=== PATIENT | male | born 1960 | race Caucasian/White ===

== ENCOUNTER → 2020-05-29 09:05 | Outpatient (BNVA) | payer MEDICARE, MEDICAID, SELFPAY | PROVIDERS: PCP Internal Medicine; Visit Provider Orthopaedic Surgery | DX: M65.332 Trigger finger, left middle finger (principal) | CPT/HCPCS: 99202 ==

== ENCOUNTER → 2020-10-03 10:23 | Outpatient (BNVA) | payer MEDICARE, MEDICAID, SELFPAY | PROVIDERS: PCP Internal Medicine; Visit Provider Urology | DX: N48.1 Balanitis (principal); E11.69 Type 2 diabetes mellitus with other specified complication; N52.1 Erectile dysfunction due to diseases classified elsewhere | CPT/HCPCS: 99212 ==

== ENCOUNTER → 2021-04-24 11:00 | Outpatient (BNVA) | payer MEDICARE, MEDICAID, SELFPAY | PROVIDERS: PCP Internal Medicine; Referring Provider Internal Medicine; Visit Provider Physician Assistant | DX: Z12.11 Encounter for screening for malignant neoplasm of colon (principal) | CPT/HCPCS: 99202 ==

== ENCOUNTER 2022-02-04 07:37 | Day surgery (SDC) | payer MEDICARE, MEDICAID, SELFPAY ==
[2022-01-29 14:35] VITALS: BMI 38.2
--- NOTE | 2022-02-03 13:27 | HO.ANESPROP2 ---
Documented by User: Brooke Lazo NP 02/03/22 13:27 HPI - Anesthesia Eval Consult details Narrative: 62yo M for Colonoscopy PMFSH Active Problems Active Problems: All Active Problems (Updated 01/29/22 @ 11:17 by Deborah Plasencia RN) Trigger finger, left middle finger (Acute) BPH w urinary obs/LUTS (Acute) Balanitis (Acute) Erectile dysfunction associated with type 2 diabetes mellitus (Acute) Encounter for screening colonoscopy (Acute) Past Medical History Medical History (Updated 01/29/22 @ 11:17 by Deborah Plasencia RN) Diabetes Essential hypertension Hernia High cholesterol Hx of migraines Hyperlipidemia Incomplete emptying of bladder Multiple sclerosis TALIA on CPAP Varicocele Weak urinary stream Family History Family History Father No problems noted. Mother Ovarian cancer Cancer of blood vessel Surgical History Surgical History (Updated 01/29/22 @ 11:17 by Deborah Plasencia RN) History of surgery History of umbilical hernia repair Hx of colonoscopy Social History Social History Patient Tobacco Use Status: Former Tobacco user Have you been hit, kicked, punched, or otherwise hurt by someone within the past year? If so, by whom?: No Are you DNR?: No Advance Directives: No Advance Directives Information Provided: Yes Advance Directives on File: No Current occupational status: disabled Current occupation: right handed/disabled Meds Allergies Allergy/AdvReac Type Severity Reaction Status Date / Time No Known Allergies Allergy Verified 01/29/22 11:17 [No Known Allergies*] Home Medications Medication Instructions Recorded Confirmed Last Taken Type alcohol swabs (Alcohol Prep Pads) pad topical TID-QID diabetes 10/03/20 04/24/21 Unknown History mellitus empagliflozin 10 mg tablet 10 mg PO DAILY 10/03/20 01/29/22 Unknown History (Jardiance) insulin aspart U-100 100 unit/mL unit subcut 10/03/20 04/24/21 Unknown History (3 mL) subcutaneous pen (Novolog Flexpen U-100 Insulin aspart) insulin detemir U-100 100 unit/mL 38 unit subcut BEDTIME 10/03/20 01/29/22 Unknown History (3 mL) subcutaneous pen (Levemir FlexTouch U-100 Insulin) metformin 1,000 mg tablet 1,000 mg PO BID 10/03/20 01/29/22 Unknown History pen needle, diabetic 32 gauge x #50 ea 10/03/20 04/24/21 Unknown History (Pentips) simvastatin 40 mg tablet 40 mg PO QPM 10/03/20 01/29/22 Unknown History aspirin 81 mg tablet,delayed 1 tab PO QAM 01/29/22 01/29/22 02/02/22 History release ketotifen fumarate 0.025 % (0.035 1 drp ophthalmic (eye) BID PRN 01/29/22 01/29/22 Unknown History %) eye drops allergies lisinopril 20 mg tablet 1 tab PO QAM 01/29/22 01/29/22 Unknown History Exam Exam Date and Time: February 03, 2022 1327 Height,Weight and Vital Signs: Height 5 ft 4 in Weight 101.151 kg Assessment and Plan Assessment Anesthesia Assessment: Chart Reviewed Documented by User: Carrington Russ MD 02/04/22 09:25 [facility] Past Medical History Medical History (Updated 01/29/22 @ 11:17 by Deborah Plasencia RN) Diabetes Essential hypertension Hernia High cholesterol Hx of migraines Hyperlipidemia Incomplete emptying of bladder Multiple sclerosis TALIA on CPAP Varicocele Weak urinary stream Family History Family History Father No problems noted. Mother Ovarian cancer Cancer of blood vessel Family history of problems with anesthesia: No Surgical History Surgical History (Updated 01/29/22 @ 11:17 by Deborah Plasencia RN) History of surgery History of umbilical hernia repair Hx of colonoscopy History of Problems with Anesthesia: No Social History Social History Patient Tobacco Use Status: Former Tobacco user Have you been hit, kicked, punched, or otherwise hurt by someone within the past year? If so, by whom?: No Are you DNR?: No Advance Directives: No Advance Directives Information Provided: Yes Advance Directives on File: No Current occupational status: disabled Current occupation: right handed/disabled Meds Allergies Allergy/AdvReac Type Severity Reaction Status Date / Time No Known Allergies Allergy Verified 01/29/22 11:17 [No Known Allergies*] Home Medications Medication Instructions Recorded Confirmed Last Taken Type alcohol swabs (Alcohol Prep Pads) pad topical TID-QID diabetes 10/03/20 04/24/21 Unknown History mellitus empagliflozin 10 mg tablet 10 mg PO DAILY 10/03/20 01/29/22 Unknown History (Jardiance) insulin aspart U-100 100 unit/mL unit subcut 10/03/20 04/24/21 Unknown History (3 mL) subcutaneous pen (Novolog Flexpen U-100 Insulin aspart) insulin detemir U-100 100 unit/mL 38 unit subcut BEDTIME 10/03/20 01/29/22 Unknown History (3 mL) subcutaneous pen (Levemir FlexTouch U-100 Insulin) metformin 1,000 mg tablet 1,000 mg PO BID 10/03/20 01/29/22 Unknown History pen needle, diabetic 32 gauge x #50 ea 10/03/20 04/24/21 Unknown History (Pentips) simvastatin 40 mg tablet 40 mg PO QPM 10/03/20 01/29/22 Unknown History aspirin 81 mg tablet,delayed 1 tab PO QAM 01/29/22 01/29/22 02/02/22 History release ketotifen fumarate 0.025 % (0.035 1 drp ophthalmic (eye) BID PRN 01/29/22 01/29/22 Unknown History %) eye drops allergies lisinopril 20 mg tablet 1 tab PO QAM 01/29/22 01/29/22 Unknown History Exam Airway Mallampati Class: III TM Dist: >3cm Neck ROM: Full Heart: rrrr Lungs: clear Assessment and Plan Final Anesthetic Review Family History of Problems with Anesthesia: No History of Problems with Anesthesia: No NPO: Yes ASA Class: II Final Preanesthetic Review: No Changes in Pt Med Stat, Meds/Allgs Chart Reviewed, Consent Obtained/Reviewed and Anes Risks/Benef Reviewed Patient Risk: Intermediate Procedure Risk: Low Anesthetic Plan Anesthetic Plan: MAC: Disposition: Standard PACU
[2022-02-04 08:47] VITALS: BP 117/70; PULSE 84; RESP 18; TEMP 37.1; O2SAT 97; BMI 39.4
[2022-02-04 08:57] LABS: Glucose, Whole Blood 158 mg/dL (60-115)
[2022-02-04] MEDS: Lactated Ringers 1,000 ML 100 ML IVCONT (09:02)
--- NOTE | 2022-02-04 09:14 | MHC.SHP ---
Pre-Procedural Eval Section A Date of Service: 02/04/22 Section B Chief Complaint: screening Relevant Family History (Specify if Yes): No Relevant Social History: None Present Medications: see Short Stay Collaborative assessment Medical History: Significant History (Diabetes Essential hypertension Hernia High cholesterol Hx of migraines Hyperlipidemia Incomplete emptying of bladder Multiple sclerosis TALIA on CPAP Varicocele Weak urinary stream) History of Previous Operations: Relevant previous surgery/procedure and date(s) (History of surgery History of umbilical hernia repair Hx of colonoscopy) Allergies: Allergies Allergy/AdvReac Type Severity Reaction Status Date / Time No Known Allergies Allergy Verified 01/29/22 11:17 [No Known Allergies*] Review of Systems Sugical H&P ROS: Negative: Constitution, Cardiovascular, Respiratory, Neurological, Psychiatric, Hem-Onc, Allergic/Immunologic, Gastrointestinal, Genitourinary, Musculoskeletal, Integumentary, Endocrine and Eyes/Ears/Nose/Throat Exam Surgical H&P Exam: Normal: HEENT, Normal: Heart, Normal: Lungs, Normal: Extremities, Normal: Abdomen, Normal: Skin and Normal: Neurological Plan Diagnosis/Plan: Unchanged I have reviewed the history and physical and performed a pertinent physical examination on my patient. No changes have occurred unless specified. Time Spent With Patient Time: Total time managing care of this patient today ____ minutes.
--- NOTE | 2022-02-04 10:06 | W.PM.OPN ---
Operative Note Operative Note Date of Service: 02/04/22 Narrative: Operative Information Procedure Description: Colonoscopy Indication: screening Anesthesia: MAC COLONOSCOPY Instrument: Olympus variable stiffness pediatric scope 190L Colonoscopy Monitoring: Vital signs and clinical assessment, continuous EKG monitoring, Pulse oximetry, Carbon Dioxide monitoring and blood pressure monitoring were done throughout the procedure. Colon withdrawal time was 27 minutes. Procedure: The patient was placed in the left lateral decubitis position and pre-procedure medications were administered. After a digital rectal examination of the ano-rectum, the video colonoscope was inserted into the rectum and advanced through the colon to the cecum/TI. The colonoscope was slowly withdrawn in a retrograde panoramic fashion and the colon mucosa was carefully examined including a retroflexed view of the rectum. Findings and interventions are described below. Procedure Difficulty: easy Findings: Terminal Ileum-normal Cecum: 6-8 mm sessile polyp right over the appendiceal orifice, this was lifted with saline injection and then removed with cold forceps Ascending Colon: 12-14 mm sessile polyp in proximal area, removed with cold snare with one clip applied for hemostasis. Transverse Colon - 10 mm sessile polyp removed with cold snare Descending Colon:normal Sigmoid Colon: mild diverticulosis, 10 mm sessile polyp removed with cold snare and x 2 clips applied for hemostasis. Rectum: Retroflexion with small internal hemorrhoids, grade I Anorectum - normal Colon preparation: [place] Bowel Preparation Scale Right colon; 2 Transverse colon: 2 Left colon; 2 (0 = Unprepared colon segment with mucosa not seen due to solid stool that cannot be cleared. 1 = Portion of mucosa of the colon segment seen, but other areas of the colon segment not well seen due to staining, residual stool and/or opaque liquid. 2 = Minor amount of residual staining, small fragments of stool and/or opaque liquid, but mucosa of colon segment seen well. 3 = Entire mucosa of colon segment seen well with no residual staining, small fragments of stool or opaque liquid) Impression and Post Procedure Diagnosis: polyps internal hemorrhoids diverticular disease Plan: High fiber diet leaflet Avoid straining at stool, epsom salts and sitz bath, anusol supps or cream Repeat Colonoscopy in 3 years or earlier if clinically indicated Avoid nsaids for 5 days. Above findings were reviewed with the patient and relevant handouts were provided if indicated.
[2022-02-04 10:11] VITALS: BP 142/79; PULSE 68; RESP 24; TEMP 36.4; O2SAT 96
[2022-02-04 10:29] VITALS: BP 121/64; PULSE 67; RESP 18; TEMP 37; O2SAT 95
== END 2022-02-04 11:20 | disposition home or self-care (01) ==
PROVIDERS: PCP Internal Medicine; Visit Provider Internal Medicine Gastroenterology
PROC: 0DJD8ZZ Inspection of Lower Intestinal Tract, Via Natural or Artificial Opening Endoscopic (ICD-10-PCS; CPT 45378; principal; 2022-02-04 09:30)
DX: Z12.11 Encounter for screening for malignant neoplasm of colon (principal); D12.0 Benign neoplasm of cecum; D12.2 Benign neoplasm of ascending colon; D12.3 Benign neoplasm of transverse colon; D12.5 Benign neoplasm of sigmoid colon; K57.30 Diverticulosis of large intestine without perforation or abscess without bleeding; K64.0 First degree hemorrhoids; I10 Essential (primary) hypertension; G47.33 Obstructive sleep apnea (adult) (pediatric); G35 Multiple sclerosis; N52.1 Erectile dysfunction due to diseases classified elsewhere; E78.00 Pure hypercholesterolemia, unspecified; E78.5 Hyperlipidemia, unspecified; E11.9 Type 2 diabetes mellitus without complications; Z79.4 Long term (current) use of insulin; Z79.82 Long term (current) use of aspirin; Z79.899 Other long term (current) drug therapy; Z99.89 Dependence on other enabling machines and devices; Z87.891 Personal history of nicotine dependence
CPT/HCPCS: 45385; 45380; 45381; 82947; 88305

== ENCOUNTER 2022-10-13 10:02 | Outpatient (AMB) | payer MEDICARE, MEDICAID, SELFPAY ==
[2022-10-13 10:13] VITALS: BP 120/68; PULSE 57; O2SAT 96; BMI 39.0
--- NOTE | 2022-10-13 10:13 | A.OFFVIS_ITS ---
Intake Vital Signs 10/13/22 10:13 Height 5 ft 4 in Weight 227 lb BMI 39.0 BP 120/68 Blood Pressure Location Lt brachial Position Sitting Pulse 57 Pulse Source Pulse Oximeter Pulse Oximetry (%) 96 Oxygen Delivery Method Room Air Intake Visit Reasons: Obstructive sleep apnea Intake Note: pt is here as a new patient, he has pain in the right lung, has c-pap in the past but needs a new machine. daytime fatigue, snoring, gasping for air at night. Field Identification Specialist Required: Yes Field Identification Specialist Name: jayesh Allergies No Known Allergies [No Known Allergies*] Allergy (Verified 10/13/22 10:30) Medication List - Last Reconciled 10/13/22 by Brittany Gauthier MD alcohol swabs (Alcohol Prep Pads) pad topical TID-QID aspirin 1 tab PO QAM clotrimazole-betamethasone 1-0.05 % 1 appl topical BID 4 weeks insulin aspart U-100 (Novolog FlexPen U-100 Insulin aspart) units subcut insulin detemir U-100 (Levemir FlexTouch U-100 Insulin) 38 units subcut BEDTIME ketotifen fumarate 0.025%(0.035%) 1 drp ophthalmic (eye) BID PRN lisinopril 1 tab PO QAM metformin 1,000 mg PO BID pen needle, diabetic (Pentips) As directed sildenafil 100 mg PO DAILY PRN 30 days simvastatin 40 mg PO QPM Do you need a note to return to daycare/school/sports/work: No HPI Obstructive sleep apnea HPI Details THIS GENTLEMAN IS 62 YEARS OLD AZERI-SPEAKING, REFERRED FOR MANAGEMENT OF HIS SLEEP APNEA, AND ALSO EVALUATION FOR HIS COMPLAINT OF PAIN IN THE RIGHT LUNG. PATIENT DOES HAVE HISTORY OF SMOKING IN THE PAST BUT LUCKILY HE QUIT BACK IN 2006. HE HAS HISTORY OF OBSTRUCTIVE SLEEP APNEA, DIAGNOSED ABOUT 13 YEARS AGO. I CAN SEE IN THE [facility] THAT HE HAD POLYSOMNOGRAM STUDY BACK IN IT SHOWED SEVERE OBSTRUCTIVE SLEEP APNEA AND RESPONDED WELL TO CPAP OF 16 CM. PATIENT DID NOT USE CPAP, VERY REGULARLY AT THAT TIME AND THEN ANOTHER POLYSOMNOGRAM STUDY WAS DONE IN 2012 AGAIN CONFIRMING THAT HE HAD SEVERE OBSTRUCTIVE SLEEP APNEA. HE HAD CPAP TITRATION AND RESPONDED WELL TO PRESSURE OF 13 CM. SINCE THEN HE HAS BEEN USING CPAP DEVICE AT NIGHT REGULARLY. HE WAS USING THE SAME OLD CPAP MACHINE, WHICH STOPPED WORKING COUPLE YEARS AGO. HE STARTED HAVING SYMPTOMS OF EXCESSIVE SNORING AND FREQUENT AWAKENINGS AT NIGHT ALONG WITH EXCESSIVE DAYTIME SLEEPINESS. SINCE ABOUT A YEAR AGO HE HAS BEEN USING HIS SON'S CPAP MACHINE, AND HAS BEEN SLEEPING RELATIVELY BETTER. IF HE DOES NOT USE THE CPAP MACHINE HE REALLY CANNOT SLEEP WELL AT NIGHT. HE IS LOOKING FOR GETTING HIS OWN CPAP MACHINE AGAIN. ALSO HAS HISTORY OF MILD OBSTRUCTIVE AIRWAY DISORDER, AND AT PRESENT HE USES ONLY ALBUTEROL 2 PUFFS Q 4-6 HOURS P.R.N. NOT REGULARLY. PATIENT COMPLAINS OF OCCASIONAL BOUTS OF COUGH AND WHEEZING, AND HE HAS MILD SHORTNESS OF BREATH ON WALKING. COMPLAINS OF SHARP PAIN OVER THE BACK OF HIS RIGHT CHEST, AND SOMETIMES HE CANNOT TAKE A DEEP BREATH, HE WANTS TO MAKE SURE IT IS NOT DUE TO HIS RIGHT LUNG. HOWEVER HE DOES HAVE CHRONIC BACK ISSUE , AND MAY HAVE THIS PAIN SECONDARY TO DEGENERATIVE ARTHRITIS. HE ALSO HAS PERIPHERAL NEUROPATHY DUE TO DIABETES MELLITUS. HE HAS CHRONIC BACK ACHE PROBLEM AND WALKS SLOWLY, HE USES A CANE FOR STABILITY. HE HAS BEEN OVERWEIGHT ALL ALONG AND IS DIFFICULT FOR HIM TO LOSE WEIGHT [facility]LY [facility] IS REVIEWED. [facility] Medical History (Updated 10/13/22 @ 12:11 by Brittany Gauthier MD) Chest pain Diabetes CLEMENTE (dyspnea on exertion) Essential hypertension Hernia High cholesterol Hx of migraines Hyperlipidemia Incomplete emptying of bladder Multiple sclerosis Obesity (BMI 30-39.9) TALIA (obstructive sleep apnea) TALIA on CPAP Somnolence, daytime Varicocele Weak urinary stream Surgical History (Updated 02/10/22 @ 08:39 by Santa Hussein) History of surgery History of umbilical hernia repair Hx of colonoscopy Family History Father No problems noted. Mother Ovarian cancer Cancer of blood vessel Social History (Updated 10/13/22 @ 10:25 by DANIELA Summers) Patient Tobacco Use Status: Former Tobacco user Current occupational status: disabled Current occupation: right handed/disabled Review of Systems Const All systems reviewed & are unremarkable except as noted in HPI and below Eyes Reports no additional complaints ENT Reports no additional complaints Card Denies chest pain, Denies irregular heart rhythm, Denies leg edema and Reports dyspnea (ONLY MILD DYSPNEA ON EXERTION) Resp Denies cough, Reports dyspnea (ONLY MILD DYSPNEA ON EXERTION) and Denies wheezing GI Reports constipation Reports no additional complaints Musc Reports back pain Skin/Breast Reports system reviewed and no additional complaints, except as documented Neuro Reports no additional complaints Psych Reports no additional complaints Endo Reports no additional complaints Aller/Immun Denies wheezing Physical Exam Vital Signs: Last Vital Signs Pulse 57 10/13/22 10:13 BP 120/68 10/13/22 10:13 Pulse Ox 96 10/13/22 10:13 Oxygen Delivery Method Room Air 10/13/22 10:13 BMI result Body Mass Index 39.0 Const General: comfortable, no acute distress, alert and awake Orientation/consciousness: patient oriented x3 HEENT Head: Yes normal to inspection General nose exam: No nasal polyps present and No nasal discharge present Face and sinus: Yes sinuses nontender Mouth: oropharynx abnormals (OROPHARYNX IS NARROW, MALLAMPATI CLASS 3) Throat: Yes posterior oropharynx normal Eyes General: appearance normal, both eyes and all related structures Neck Neck: Yes normal visual inspection, Yes no lymphadenopathy, Yes trachea midline, Yes no JVD and Yes other (NECK CIRCUMFERENCE 20 IN) Thyroid: Thyroid normal Chest Chest palpation & inspection: normal inspection of the chest, normal palpation of entire chest wall and no tenderness Resp Other: PERCUSSION NOTE IS RESONANT, BREATH SOUNDS ARE SLIGHTLY DISTANT. BUT NO AUDIBLE WHEEZES OR RHONCHI ARE HEARD Cardio Palpation: normal PMI Rate: regular rate Rhythm: regular rhythm Heart sounds: no gallops and no murmurs Peripheral pulses: Peripheral pulses 2+ throughout GI Palpation (GI): Soft to palpation, nontender, No hepatosplenomegaly present and no masses Auscultation: normal bowel sounds Back/Spine/Pelvis Thoracic/Lumbar Spine: thoracic and lumbar spine normal to inspection and thoraco-lumbar ROM limited Skin General skin exam: no rashes or lesions noted Neuro General: patient oriented x3 and no focal motor deficits Cranial nerves: Yes CN's II-XII intact bilaterally Extrem General: Yes normal to inspection, Yes no clubbing, cyanosis or edema and Yes no calf tenderness Psych Appearance: grossly normal and well kempt Speech and movement: Normal speech and movement present Assessment & Plan Assessment & Plan (1) Obesity (BMI 30-39.9): Comment: THIS GENTLEMAN IS GROSSLY OBESE , HAS A ROUND FACE, OBESE NECK ( 20 ) AND A GOOD CANDIDATE FOR SLEEP APNEA NOT IN ANY SHAPE TO LOSE. WEIGHT AT THIS TIME Code(s): E66.9 - Obesity, unspecified (2) TALIA (obstructive sleep apnea): Comment: HAS LONGSTANDING HISTORY OF SLEEP APNEA, AT LEAST SINCE 2008. HAS PREVIOUSLY USED CPAP, HIS MACHINE IS OLD, CURRENTLY USING HIS SON'S CPAP MACHINE. WITHOUT THE USE OF CPAP HE IS VERY SYMPTOMATIC. PLAN IS TO REPEAT A HOME SLEEP STUDY, TO CONFIRM THE DIAGNOSIS AND THEN TO GET A NEW CPAP MACHINE FOR HIM. Code(s): G47.33 - Obstructive sleep apnea (adult) (pediatric) (3) Chest pain: Comment: HE COMPLAINS OF DISCOMFORT IN THE RIGHT LOWER COSTAL AREA, THERE IS NO LOCAL TENDERNESS. NO ADVENTITIOUS SOUNDS IN THE RIGHT CHEST ARE HEARD THE PAIN IS PROBABLY MUSCULAR, OR MAY BE RELATED TO DEGENERATIVE ARTHRITIS OF THE SPINE. I HAVE ORDERED A CHEST X-RAY JUST TO REASSURE HIM. IN THE MEANTIME APPLICATION OF HEAT AND LOCAL MASSAGE URGE SHOULD BE HELPFUL. HE CAN ALSO USE TYLENOL 2 TABLETS Q.6 HOURS P.R.N.. Code(s): R07.9 - Chest pain, unspecified (4) CLEMENTE (dyspnea on exertion): Comment: HAS MILD DYSPNEA ON EXERTION LIKE WALKING FAST. BUT NO COUGH OR. 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 WILL ORDER PULMONARY FUNCTION TEST FOR EVALUATION. Code(s): R06.09 - Other forms of dyspnea Orders: Orders RT home sleep study Today E66.9 - Obesity, unspecified, G47.33 - Obstructive sleep apnea (adult) (pediatric), R40.0 - Somnolence PFT pulmonary function test Today E66.9 - Obesity, unspecified, R06.09 - Other forms of dyspnea XR chest 2V Today R06.09 - Other forms of dyspnea, R07.9 - Chest pain, unspecified Coding Level of Care Code New Pt Level 4 (08033) Diagnoses Obesity (BMI 30-39.9) E66.9 TALIA (obstructive sleep apnea) G47.33 Chest pain R07.9 CLEMENTE (dyspnea on exertion) R06.09
== END 2022-10-13 10:47 | disposition home or self-care (01) ==
PROVIDERS: PCP Internal Medicine; Visit Provider Internal Medicine
DX: E66.9 Obesity, unspecified (principal); G47.33 Obstructive sleep apnea (adult) (pediatric); R07.9 Chest pain, unspecified; R06.09 Other forms of dyspnea
CPT/HCPCS: 99204

== ENCOUNTER → 2022-10-13 10:02 | Outpatient (BNVA) | payer MEDICARE, MEDICAID, SELFPAY | PROVIDERS: PCP Internal Medicine; Visit Provider Internal Medicine | DX: G47.33 Obstructive sleep apnea (adult) (pediatric) (principal); E66.9 Obesity, unspecified; R07.9 Chest pain, unspecified; R06.09 Other forms of dyspnea; Z68.39 Body mass index [BMI] 39.0-39.9, adult | CPT/HCPCS: 99202 ==

== ENCOUNTER 2022-10-14 10:13 | Outpatient (REF) | payer MEDICARE, MEDICAID, SELFPAY ==
--- NOTE | ~2022-10-14 | XR_ITS ---
EXAMINATION: XR CHEST CLINICAL INFORMATION: Dyspnea COMPARISON: None available. TECHNIQUE: 2 views of the chest were obtained. FINDINGS: No dominant airspace consolidations or pleural effusions. There is mild prominence of pulmonary vascularity with partially ill-defined margins. Underlying mild vascular congestion is a consideration. There are mild thoracic spondylitic changes. XR/XR chest 2V IMPRESSION: No focal infiltrates or pleural effusions. Mild prominence of pulmonary vascularity with partially ill-defined margins. Underlying mild vascular congestion is a consideration.
== END 2022-10-14 10:14 | disposition home or self-care (01) ==
LOC: HO.XRAY 10:13
PROVIDERS: Visit Provider Internal Medicine
DX: R06.09 Other forms of dyspnea (principal); R07.9 Chest pain, unspecified
CPT/HCPCS: 71046

== ENCOUNTER 2022-11-06 13:54 | Outpatient (REF) | payer MEDICARE, MEDICAID, SELFPAY ==
--- NOTE | 2022-11-06 14:49 | PFT_ITS ---
INDICATION: Dyspnea. SPIROMETRY: FEV1 to FVC 100% with an FEV1 of 1.88 L, which is 65% predicted and an FVC of 1.88 L, which is 49% predicted. No significant response to bronchodilators noted. Maximum voluntary ventilation 80% predicted. LUNG VOLUMES: Total lung capacity 57% predicted with an expiratory reserve volume of 13% predicted. DIFFUSION CAPACITY: DLCO of 101% predicted. COMPARISONS: None. INTERPRETATION: No obstructive ventilatory defects. No significant response to bronchodilators noted. Normal maximum voluntary ventilation. Lung volumes do demonstrate an obstructive ventilatory defect consistent with moderate restrictive lung disease. The patient also has a significant decrease in the expiratory reserve volume secondary to an elevated BMI. Diffusion capacity is within normal limits. Clinical correlation warranted. MD KENROY Aleman/LEÓN / [id number]
== END 2022-11-06 13:55 | disposition home or self-care (01) ==
LOC: HO.RESP 13:54
PROVIDERS: PCP Internal Medicine; Visit Provider Internal Medicine
DX: R06.09 Other forms of dyspnea (principal); E66.9 Obesity, unspecified
CPT/HCPCS: 94010; 94727; 94729

== ENCOUNTER → 2022-11-06 14:49 | Outpatient (BNV) | payer MEDICARE, MEDICAID, SELFPAY | PROVIDERS: PCP Internal Medicine; Visit Provider Hospitalist | DX: R06.83 Snoring (principal); G47.33 Obstructive sleep apnea (adult) (pediatric) | CPT/HCPCS: 94060; 94727; 94729 ==

== ENCOUNTER → 2022-11-17 14:47 | Outpatient (REF) | payer MEDICARE, MEDICAID, SELFPAY | LOC: HO.SL 14:47 | PROVIDERS: PCP Internal Medicine; Visit Provider Internal Medicine | DX: G47.33 Obstructive sleep apnea (adult) (pediatric) (principal); R40.0 Somnolence; E66.9 Obesity, unspecified | CPT/HCPCS: 95806 ==

== ENCOUNTER → 2022-11-17 15:11 | Outpatient (BNV) | payer MEDICARE, MEDICAID, SELFPAY | PROVIDERS: PCP Internal Medicine; Visit Provider Internal Medicine | DX: G47.33 Obstructive sleep apnea (adult) (pediatric) (principal) | CPT/HCPCS: 95806 ==

== ENCOUNTER 2022-12-17 09:51 | Outpatient (AMB) | payer MEDICARE, SELFPAY ==
[2022-12-17 10:10] VITALS: BP 128/60; PULSE 72; O2SAT 95; BMI 38.6
--- NOTE | 2022-12-17 10:10 | MHC.OFFVIS ---
Intake Vital Signs 12/17/22 10:10 Height 5 ft 4 in Weight 225 lb BMI 38.6 BP 128/60 Blood Pressure Location Lt brachial Position Sitting Pulse 72 Pulse Source Pulse Oximeter Pulse Oximetry (%) 95 Oxygen Delivery Method Room Air Intake Visit Reasons: Obstructive sleep apnea Intake Note: pt is here for follow up of sleep study and pft. Administrator Pesticide Required: Yes Administrator Pesticide Name: [id number] adalbeto Allergies No Known Allergies [No Known Allergies*] Allergy (Verified 12/17/22 10:33) Medication List - Last Reconciled 12/17/22 by Brittany Gauthier MD alcohol swabs (Alcohol Prep Pads) pad topical TID-QID aspirin 1 tab PO QAM clotrimazole-betamethasone 1-0.05 % 1 appl topical BID 4 weeks insulin aspart U-100 (Novolog FlexPen U-100 Insulin aspart) units subcut insulin detemir U-100 (Levemir FlexTouch U-100 Insulin) 38 units subcut BEDTIME ketotifen fumarate 0.025%(0.035%) 1 drp ophthalmic (eye) BID PRN lisinopril 1 tab PO QAM metformin 1,000 mg PO BID pen needle, diabetic (Pentips) As directed sildenafil 100 mg PO DAILY PRN 30 days simvastatin 40 mg PO QPM Do you need a note to return to daycare/school/sports/work: No HPI Obstructive sleep apnea HPI Details 62 years old very pleasant gentleman, Albanian-speaking, comes. For follow-up after his sleep study Breathing nicholson he is okay except for mild shortness of breath if he walks or climbs stairs. Very little cough. Or wheezing He does not have to use the inhaler. His sleep is still poor frequent awakenings with snoring and daytime sleepiness. Weight unchanged.. [facility] Medical History (Updated 12/17/22 @ 10:40 by Brittany Gauthier MD) Nocturnal hypoxemia Somnolence, daytime CLEMENTE (dyspnea on exertion) Chest pain TALIA (obstructive sleep apnea) Obesity (BMI 30-39.9) Hx of migraines TALIA on CPAP Hyperlipidemia Varicocele Weak urinary stream Incomplete emptying of bladder Essential hypertension Hernia Multiple sclerosis High cholesterol Diabetes Surgical History History of umbilical hernia repair Hx of colonoscopy History of surgery Family History Father No problems noted. Mother Ovarian cancer Cancer of blood vessel Social History Patient Tobacco Use Status: Former Tobacco user Current occupational status: disabled Current occupation: right handed/disabled Review of Systems Const All systems reviewed & are unremarkable except as noted in HPI and below Eyes Reports no additional complaints ENT Reports no additional complaints Card Denies chest pain, Denies irregular heart rhythm, Denies leg edema and Reports dyspnea (ONLY MILD DYSPNEA ON EXERTION) Resp Denies cough, Reports dyspnea (ONLY MILD DYSPNEA ON EXERTION) and Denies wheezing GI Reports constipation Reports no additional complaints Musc Reports back pain Skin/Breast Reports system reviewed and no additional complaints, except as documented Neuro Reports no additional complaints Psych Reports no additional complaints Endo Reports no additional complaints Aller/Immun Denies wheezing Physical Exam Vital Signs: Last Vital Signs Pulse 72 12/17/22 10:10 BP 128/60 12/17/22 10:10 Pulse Ox 95 12/17/22 10:10 Oxygen Delivery Method Room Air 12/17/22 10:10 BMI result Body Mass Index 38.6 Const General: comfortable, no acute distress, alert and awake Orientation/consciousness: patient oriented x3 HEENT Head: Yes normal to inspection General nose exam: No nasal polyps present and No nasal discharge present Face and sinus: Yes sinuses nontender Mouth: oropharynx abnormals (OROPHARYNX IS NARROW, MALLAMPATI CLASS 3) Throat: Yes posterior oropharynx normal Eyes General: appearance normal, both eyes and all related structures Neck Neck: Yes normal visual inspection, Yes no lymphadenopathy, Yes trachea midline, Yes no JVD and Yes other (NECK CIRCUMFERENCE 20 IN) Thyroid: Thyroid normal Chest Chest palpation & inspection: normal inspection of the chest, normal palpation of entire chest wall and no tenderness Resp Other: PERCUSSION NOTE IS RESONANT, BREATH SOUNDS ARE SLIGHTLY DISTANT. BUT NO AUDIBLE WHEEZES OR RHONCHI ARE HEARD Cardio Palpation: normal PMI Rate: regular rate Rhythm: regular rhythm Heart sounds: no gallops and no murmurs Peripheral pulses: Peripheral pulses 2+ throughout GI Palpation (GI): Soft to palpation, nontender, No hepatosplenomegaly present and no masses Auscultation: normal bowel sounds Back/Spine/Pelvis Thoracic/Lumbar Spine: thoracic and lumbar spine normal to inspection and thoraco-lumbar ROM limited Skin General skin exam: no rashes or lesions noted Neuro General: patient oriented x3 and no focal motor deficits Cranial nerves: Yes CN's II-XII intact bilaterally Extrem General: Yes normal to inspection, Yes no clubbing, cyanosis or edema and Yes no calf tenderness Psych Appearance: grossly normal and well kempt Speech and movement: Normal speech and movement present Results Reviewed Results Reviewed: PULMONARY FUNCTION TEST ON 11/06/2022 NORMAL. HOME BASED SLEEP STUDY ON 11/17/2022, c/w SEVERE OBSTRUCTIVE SLEEP APNEA WITH TOTAL SLEEP TIME AHI 53.7. PATIENT ALSO HAS NOCTURNAL HYPOXEMIA WITH O2 SAT BELOW 88% FOR 96 MINUTES Assessment & Plan Assessment & Plan (1) Obesity (BMI 30-39.9): Comment: THIS GENTLEMAN IS GROSSLY OBESE , HAS A ROUND FACE, OBESE NECK ( 20 ) AND A GOOD CANDIDATE FOR SLEEP APNEA NOT IN ANY SHAPE TO LOSE WEIGHT AT THIS TIME Code(s): E66.9 - Obesity, unspecified (2) TALIA (obstructive sleep apnea): Comment: HAS LONGSTANDING HISTORY OF SLEEP APNEA, AT LEAST SINCE 2008. HAS PREVIOUSLY USED CPAP, HIS MACHINE IS OLD, CURRENT SLEEP STUDY CONFIRMS THE DIAGNOSIS OF HIS VERY SEVERE OBSTRUCTIVE SLEEP APNEA WITH TOTAL SLEEP TIME AHI 53.7 HE NEEDS A NEW CPAP DEVICE, WITH COMPLIANCE MONITORING CAPABILITY . AFTER DISCUSSING THE RESULTS WITH HIM, I AM ORDERING CPAP MACHINE WITH AUTO PAP SETTING 6-20 CM PRESSURE, . HE WILL NEED FULLFACE MASK THIS WILL BE FOLLOWED BY CLOSE MONITORING FOR COMPLIANCE AND BENEFITS. PATIENT ALREADY KNOWS HOW TO USE THE CPAP MACHINE. Code(s): G47.33 - Obstructive sleep apnea (adult) (pediatric) (3) CLEMENTE (dyspnea on exertion): Comment: HAS MILD DYSPNEA ON EXERTION LIKE WALKING FAST. BUT NO COUGH OR. WHEEZING AT REST IT SEEMS TO BE RELATED TO HIS GROSS OBESITY. PULMONARY FUNCTION TEST DOES NOT SHOW OBSTRUCTIVE OR RESTRICTIVE PULMONARY DISORDER, Code(s): R06.09 - Other forms of dyspnea (4) Nocturnal hypoxemia: Comment: ALONG WITH SEVERE TALIA HE ALSO HAS NOCTURNAL HYPOXEMIA WITH O2 SAT BELOW 88% FOR 96 MINUTES. I THINK WITH THE USE OF CPAP IT WILL RESOLVE. ONCE HE IS USING CPAP REGULARLY WE WILL GET OVERNIGHT OXIMETRY RECORDING TO MAKE SURE THAT HYPOXEMIA IS CORRECTED. Code(s): G47.34 - Idiopathic sleep related nonobstructive alveolar hypoventilation Coding Level of Care Code Est Pt Level 4 (40005) Diagnoses Obesity (BMI 30-39.9) E66.9 TALIA (obstructive sleep apnea) G47.33 CLEMENTE (dyspnea on exertion) R06.09 Nocturnal hypoxemia G47.34
== END 2022-12-17 10:34 | disposition home or self-care (01) ==
PROVIDERS: PCP Internal Medicine; Visit Provider Internal Medicine
DX: E66.9 Obesity, unspecified (principal); G47.33 Obstructive sleep apnea (adult) (pediatric); R06.09 Other forms of dyspnea; G47.34 Idiopathic sleep related nonobstructive alveolar hypoventilation
CPT/HCPCS: 99214

== ENCOUNTER → 2022-12-17 09:51 | Outpatient (BNVA) | payer MEDICARE, MEDICAID, SELFPAY | PROVIDERS: PCP Internal Medicine; Visit Provider Internal Medicine | DX: S61.325A Laceration with foreign body of left ring finger with damage to nail, initial encounter (principal); W27.0XXA Contact with workbench tool, initial encounter | CPT/HCPCS: 99212 ==

== ENCOUNTER 2022-12-29 13:02 | Outpatient (AMB) | payer MEDICARE, MEDICAID, SELFPAY ==
--- NOTE | 2022-12-29 13:07 | MHC.OFFVIS ---
Intake Vital Signs 12/29/22 13:09 Height 5 ft 4 in Weight 226 lb BMI 38.8 BP 165/77 H Blood Pressure Location Rt brachial Position Sitting Pulse 64 Intake Visit Reasons: Anal polyps Intake Note: Patient referred for external hemorroids. Reports hemorrhoid feels smaller and improving. Coal Hauler Required: No Accompanied by: Brother Allergies No Known Allergies [No Known Allergies*] Allergy (Verified 12/17/22 10:33) HPI HPI Comments History of Present Illness Details Patient presents with his brother for evaluation of an anorectal ?polyp ?. His symptoms started approximately 2 weeks ago a swelling in the and rectal area which has markedly decreased in size. Patient had recent colonoscopy which only demonstrated polyps but no other gross pathology. Patient does have regular bowel habits. He denies any anal receptive practices. Chart was reviewed patient evaluated [facility] Medical History Nocturnal hypoxemia Somnolence, daytime CLEMENTE (dyspnea on exertion) Chest pain TALIA (obstructive sleep apnea) Obesity (BMI 30-39.9) Hx of migraines TALIA on CPAP Hyperlipidemia Varicocele Weak urinary stream Incomplete emptying of bladder Essential hypertension Hernia Multiple sclerosis High cholesterol Diabetes Surgical History History of umbilical hernia repair Hx of colonoscopy History of surgery Family History Father No problems noted. Mother Ovarian cancer Cancer of blood vessel Social History Alcohol intake: never Patient Tobacco Use Status: Former Tobacco user Current occupational status: disabled Current occupation: right handed/disabled Physical Exam Vital Signs: Last Vital Signs Pulse 64 12/29/22 13:09 BP 165/77 H 12/29/22 13:09 BMI result Body Mass Index 38.8 GI Other: Abdomen corpulent, soft, benign Anorectal exam demonstrates a resolving small thrombosed external hemorrhoid in The left lateral position.. Assessment & Plan Assessment & Plan (1) Thrombosed external hemorrhoids: Code(s): K64.5 - Perianal venous thrombosis Plan Patient was reassured that this process will resolve completely. He has been instructed to avoid constipation, high-fiber diet, avoid straining and prolonged sitting on a stool and minimize heavy lifting. All questions were answered. He will follow-up p.r.n.. Coding Level of Care Code New Pt Level 4 (67559) Diagnoses Thrombosed external hemorrhoids K64.5
[2022-12-29 13:09] VITALS: BP 165/77; PULSE 64; BMI 38.8
== END 2022-12-29 13:12 | disposition home or self-care (01) ==
PROVIDERS: PCP Internal Medicine; Referring Provider Internal Medicine; Visit Provider Surgery
DX: K64.5 Perianal venous thrombosis (principal)
CPT/HCPCS: 99204

== ENCOUNTER → 2022-12-29 13:02 | Outpatient (BNVA) | payer MEDICARE, MEDICAID, SELFPAY | PROVIDERS: PCP Internal Medicine; Referring Provider Internal Medicine; Visit Provider Surgery | DX: K64.5 Perianal venous thrombosis (principal) | CPT/HCPCS: 99202 ==

== ENCOUNTER 2023-01-20 13:40 | Outpatient (AMB) | payer MEDICARE, MEDICAID, SELFPAY ==
[2023-01-20 13:54] VITALS: BP 104/52; PULSE 72; O2SAT 93; BMI 38.1
--- NOTE | 2023-01-20 13:54 | A.OFFVIS_ITS ---
Intake Vital Signs 01/20/23 13:54 Height 5 ft 4 in Weight 222 lb BMI 38.1 BP 104/52 L Blood Pressure Location Lt brachial Position Sitting Pulse 72 Pulse Source Pulse Oximeter Pulse Oximetry (%) 93 Oxygen Delivery Method Room Air Intake Visit Reasons: Obstructive sleep apnea Intake Note: pt is here for follow up of cpap, and states little issue in the nasal area with mask Manager Financial Reporting Required: Yes Manager Financial Reporting Name: santana Allergies No Known Allergies [No Known Allergies*] Allergy (Verified 01/20/23 14:10) Medication List - Last Reconciled 01/20/23 by Brittany Gauthier MD alcohol swabs (Alcohol Prep Pads) pad topical TID-QID aspirin 1 tab PO QAM clotrimazole-betamethasone 1-0.05 % 1 appl topical BID 4 weeks insulin aspart U-100 (Novolog FlexPen U-100 Insulin aspart) units subcut insulin detemir U-100 (Levemir FlexTouch U-100 Insulin) 38 units subcut BEDTIME ketotifen fumarate 0.025%(0.035%) 1 drp ophthalmic (eye) BID PRN lisinopril 1 tab PO QAM metformin 1,000 mg PO BID pen needle, diabetic (Pentips) As directed sildenafil 100 mg PO DAILY PRN 30 days simvastatin 40 mg PO QPM Do you need a note to return to daycare/school/sports/work: No HPI Obstructive sleep apnea HPI Details THIS 63 YEARS OLD GENTLEMAN, UPPER [place]BI[place]-SPEAKING, IS HERE FOR FOLLOW-UP AFTER STARTING TO USE THE CPAP. HE GOT HIS CPAP ABOUT 3 WEEKS AGO AND SINCE THEN HAS BEEN USING IT EVERY NIGHT. HE HAS FULL FACE MASK, WHICH IS CAUSING SOME PRESSURE-LIKE FEELING ON THE NASAL BRIDGE. ALSO HAS NASAL CONGESTION AT NIGHT. OTHERWISE HE IS USING THE CPAP VERY GOOD AND SLEEPING BETTER. [facility] Medical History (Updated 01/20/23 @ 14:16 by Brittany Gauthier MD) Allergic rhinitis Nocturnal hypoxemia Somnolence, daytime CLEMENTE (dyspnea on exertion) Chest pain TALIA (obstructive sleep apnea) Obesity (BMI 30-39.9) Hx of migraines TALIA on CPAP Hyperlipidemia Varicocele Weak urinary stream Incomplete emptying of bladder Essential hypertension Hernia Multiple sclerosis High cholesterol Diabetes Surgical History History of umbilical hernia repair Hx of colonoscopy History of surgery Family History Father No problems noted. Mother Ovarian cancer Cancer of blood vessel Social History Alcohol intake: never Patient Tobacco Use Status: Former Tobacco user Current occupational status: disabled Current occupation: right handed/disabled Review of Systems Const All systems reviewed & are unremarkable except as noted in HPI and below Eyes Reports no additional complaints ENT Reports no additional complaints and Reports nasal congestion (MILD NASAL CON GESTION IS NOTED) Card Denies chest pain, Denies irregular heart rhythm, Denies leg edema and Reports dyspnea (ONLY MILD DYSPNEA ON EXERTION) Resp Denies cough, Reports dyspnea (ONLY MILD DYSPNEA ON EXERTION) and Denies wheezing GI Reports constipation Reports no additional complaints Musc Reports back pain Skin/Breast Reports system reviewed and no additional complaints, except as documented Neuro Reports no additional complaints Psych Reports no additional complaints Endo Reports no additional complaints Aller/Immun Denies wheezing Physical Exam Vital Signs: Last Vital Signs Pulse 72 01/20/23 13:54 BP 104/52 L 01/20/23 13:54 Pulse Ox 93 01/20/23 13:54 Oxygen Delivery Method Room Air 01/20/23 13:54 BMI result Body Mass Index 38.1 Const General: comfortable, no acute distress, alert and awake Orientation/consciousness: patient oriented x3 HEENT Head: Yes normal to inspection General nose exam: No nasal polyps present, No nasal discharge present and Other nasal findings present (MILD NASAL CONGESTION AND MODERATE HYPERTROPHY OF THE MIDDLE TURBINATES) Face and sinus: Yes sinuses nontender Mouth: oropharynx abnormals (OROPHARYNX IS NARROW, MALLAMPATI CLASS 3) Throat: Yes posterior oropharynx normal Eyes General: appearance normal, both eyes and all related structures Neck Neck: Yes normal visual inspection, Yes no lymphadenopathy, Yes trachea midline, Yes no JVD and Yes other (NECK CIRCUMFERENCE 20 IN) Thyroid: Thyroid normal Chest Chest palpation & inspection: normal inspection of the chest, normal palpation of entire chest wall and no tenderness Resp Other: PERCUSSION NOTE IS RESONANT, BREATH SOUNDS ARE SLIGHTLY DISTANT. BUT NO AUDIBLE WHEEZES OR RHONCHI ARE HEARD Cardio Palpation: normal PMI Rate: regular rate Rhythm: regular rhythm Heart sounds: no gallops and no murmurs Peripheral pulses: Peripheral pulses 2+ throughout GI Palpation (GI): Soft to palpation, nontender, No hepatosplenomegaly present and no masses Auscultation: normal bowel sounds Back/Spine/Pelvis Thoracic/Lumbar Spine: thoracic and lumbar spine normal to inspection and thoraco-lumbar ROM limited Skin General skin exam: no rashes or lesions noted Neuro General: patient oriented x3 and no focal motor deficits Cranial nerves: Yes CN's II-XII intact bilaterally Extrem General: Yes normal to inspection, Yes no clubbing, cyanosis or edema and Yes no calf tenderness Psych Appearance: grossly normal and well kempt Speech and movement: Normal speech and movement present Results Reviewed Results Reviewed: COMPLIANCE REPORT FOR THE LAST THREE WEEKS. HE HAS USED EVERY NIGHT REGULARLY. AVERAGE USE PER NIGHT 4 HOURS AND TWENTY NINE MINUTES. THERE IS MODERATE AMOUNT OF AIR LEAK, AND RESIDUAL AHI STILL 13.4. Assessment & Plan Assessment & Plan (1) Obesity (BMI 30-39.9): Comment: THIS GENTLEMAN IS GROSSLY OBESE , HAS A ROUND FACE, OBESE NECK ( 20 ) AND A GOOD CANDIDATE FOR SLEEP APNEA NOT IN ANY SHAPE TO LOSE WEIGHT AT THIS TIME Code(s): E66.9 - Obesity, unspecified Plan: AGAIN TALKED TO HIM ABOUT THE DIET AND IMPORTANCE OF EXERCISE. HE DOES NOT SEEM TO BE MOTIVATED TO DO MUCH EXERCISE (2) TALIA (obstructive sleep apnea): Comment: HAS LONGSTANDING HISTORY OF SLEEP APNEA, AT LEAST SINCE 2008. HAS PREVIOUSLY USED CPAP, HIS MACHINE IS OLD, CURRENT SLEEP STUDY CONFIRMS THE DIAGNOSIS OF HIS VERY SEVERE OBSTRUCTIVE SLEEP APNEA WITH TOTAL SLEEP TIME AHI 53.7 HE NEEDS A NEW CPAP DEVICE, WITH COMPLIANCE MONITORING CAPABILITY . AFTER DISCUSSING THE RESULTS WITH HIM, I AM ORDERING CPAP MACHINE WITH AUTO PAP SETTING 6-20 CM PRESSURE, . HE WILL NEED FULLFACE MASK THIS WILL BE FOLLOWED BY CLOSE MONITORING FOR COMPLIANCE AND BENEFITS. PATIENT ALREADY KNOWS HOW TO USE THE CPAP MACHINE. Code(s): G47.33 - Obstructive sleep apnea (adult) (pediatric) Plan: HE IS DOING WELL WITH THE NEW CPAP DEVICE. NEEDS DECONGESTANT SPRAY IN THE NOSTRILS AT NIGHTTIME. ENCOURAGED TO USE AT LEAST FOR FIVE. (3) Nocturnal hypoxemia: Comment: ALONG WITH SEVERE TALIA HE ALSO HAS NOCTURNAL HYPOXEMIA WITH O2 SAT BELOW 88% FOR 96 MINUTES. I THINK WITH THE USE OF CPAP IT WILL RESOLVE. Code(s): G47.34 - Idiopathic sleep related nonobstructive alveolar hypoventilation Plan: NOW THAT HE IS USING CPAP REGULARLY I WILL ORDER AN OVERNIGHT OXIMETRY RECORDING, TO MAKE SURE THAT HYPOXEMIA HAS RESOLVED. (4) Allergic rhinitis: Code(s): J30.9 - Allergic rhinitis, unspecified Plan: HE GETS SOME NASAL CONGESTION ESPECIALLY AT NIGHT. ATROVENT NASAL SPRAY TWO SQUIRTS IN EACH NOSTRIL BEFORE PUTTING ON THE CPAP, ORDERED . Medications: New ipratropium bromide administer into each nostril 2 sprays intranasal BID 30 mL 2RF NASAL CONGESTION 30 days Coding Level of Care Code Est Pt Level 3 (67385) Diagnoses Obesity (BMI 30-39.9) E66.9 TALIA (obstructive sleep apnea) G47.33 Nocturnal hypoxemia G47.34 Allergic rhinitis J30.9
== END 2023-01-20 14:12 | disposition home or self-care (01) ==
PROVIDERS: PCP Internal Medicine; Visit Provider Internal Medicine
DX: E66.9 Obesity, unspecified (principal); G47.33 Obstructive sleep apnea (adult) (pediatric); G47.34 Idiopathic sleep related nonobstructive alveolar hypoventilation; J30.9 Allergic rhinitis, unspecified
CPT/HCPCS: 99213

== ENCOUNTER → 2023-01-20 13:40 | Outpatient (BNVA) | payer MEDICARE, MEDICAID, SELFPAY | PROVIDERS: PCP Internal Medicine; Visit Provider Internal Medicine | DX: G47.33 Obstructive sleep apnea (adult) (pediatric) (principal); G47.34 Idiopathic sleep related nonobstructive alveolar hypoventilation; J30.9 Allergic rhinitis, unspecified; E66.9 Obesity, unspecified; Z68.38 Body mass index [BMI] 38.0-38.9, adult | CPT/HCPCS: 99212 ==

== ENCOUNTER 2023-03-24 13:54 | Outpatient (AMB) | payer MEDICARE, MEDICAID, SELFPAY ==
[2023-03-24 14:08] VITALS: BP 110/62; PULSE 67; O2SAT 95; BMI 39.0
--- NOTE | 2023-03-24 14:08 | MHC.OFFVIS ---
Intake Vital Signs 03/24/23 14:08 Height 5 ft 4 in Weight 227 lb BMI 39.0 BP 110/62 Blood Pressure Location Lt brachial Position Sitting Pulse 67 Pulse Source Pulse Oximeter Pulse Oximetry (%) 95 Oxygen Delivery Method Room Air Intake Visit Reasons: Obstructive sleep apnea Intake Note: pt is here for follow up of TALIA and is not using cpap (returned) sleeping okay, Industrial Aerial Installer Required: Yes Industrial Aerial Installer Name: brother Allergies No Known Allergies [No Known Allergies*] Allergy (Verified 03/24/23 14:14) Medication List - Last Reconciled 03/24/23 by Brittany Gauthier MD alcohol swabs (Alcohol Prep Pads) pad topical TID-QID aspirin 1 tab PO QAM clotrimazole-betamethasone 1-0.05 % 1 appl topical BID 4 weeks insulin aspart U-100 (Novolog FlexPen U-100 Insulin aspart) units subcut insulin detemir U-100 (Levemir FlexTouch U-100 Insulin) 38 units subcut BEDTIME ipratropium bromide 2 sprays intranasal BID 30 days ketotifen fumarate 0.025%(0.035%) 1 drp ophthalmic (eye) BID PRN lisinopril 1 tab PO QAM metformin 1,000 mg PO BID pen needle, diabetic (Pentips) As directed sildenafil 100 mg PO DAILY PRN 30 days simvastatin 40 mg PO QPM Do you need a note to return to daycare/school/sports/work: No HPI Obstructive sleep apnea HPI Details 63 years old gentleman, grossly obese, somewhat simple minded, comes for follow-up for his sleep apnea. He had used the CPAP up until mid February, and was doing well. Then he stop using the CPAP altogether, and even return the CPAP machine. He claims that he was not sleeping good with the mask on, Now he sleeps much better without the mask on his face. He claims that he gets about 6-7 hours of sleep, he remains alert during the daytime without any sleepiness. He has always sleeping in lateral position. He thinks he is watching his diet and has lost some weight but in fact he has gained a few lb since last visit. His pulmonary function test has shown restrictive pulmonary disorder due to his obesity but he, denies any shortness of breath or wheezing or cough. [facility] Medical History Allergic rhinitis Nocturnal hypoxemia Somnolence, daytime CLEMENTE (dyspnea on exertion) Chest pain TALIA (obstructive sleep apnea) Obesity (BMI 30-39.9) Hx of migraines TALIA on CPAP Hyperlipidemia Varicocele Weak urinary stream Incomplete emptying of bladder Essential hypertension Hernia Multiple sclerosis High cholesterol Diabetes Surgical History History of umbilical hernia repair Hx of colonoscopy History of surgery Family History Father No problems noted. Mother Ovarian cancer Cancer of blood vessel Social History Alcohol intake: never Patient Tobacco Use Status: Former Tobacco user Current occupational status: disabled Current occupation: right handed/disabled Review of Systems Const All systems reviewed & are unremarkable except as noted in HPI and below Eyes Reports no additional complaints ENT Reports no additional complaints and Reports nasal congestion (MILD NASAL CONGESTION IS NOTED) Card Denies chest pain, Denies irregular heart rhythm, Denies leg edema and Reports dyspnea (ONLY MILD DYSPNEA ON EXERTION) Resp Denies cough, Reports dyspnea (ONLY MILD DYSPNEA ON EXERTION) and Denies wheezing GI Reports constipation Reports no additional complaints Musc Reports back pain Skin/Breast Reports system reviewed and no additional complaints, except as documented Neuro Reports no additional complaints Psych Reports no additional complaints Endo Reports no additional complaints Aller/Immun Denies wheezing Physical Exam Vital Signs: Last Vital Signs Pulse 67 03/24/23 14:08 BP 110/62 03/24/23 14:08 Pulse Ox 95 03/24/23 14:08 Oxygen Delivery Method Room Air 03/24/23 14:08 BMI result Body Mass Index 39.0 Const General: comfortable, no acute distress, alert and awake Orientation/consciousness: patient oriented x3 HEENT Head: Yes normal to inspection General nose exam: No nasal polyps present, No nasal discharge present and Other nasal findings present (MILD NASAL CONGESTION AND MODERATE HYPERTROPHY OF THE MIDDLE TURBINATES) Face and sinus: Yes sinuses nontender Mouth: oropharynx abnormals (OROPHARYNX IS NARROW, MALLAMPATI CLASS 3) Throat: Yes posterior oropharynx normal Eyes General: appearance normal, both eyes and all related structures Neck Neck: Yes normal visual inspection, Yes no lymphadenopathy, Yes trachea midline, Yes no JVD and Yes other (NECK CIRCUMFERENCE 20 IN) Thyroid: Thyroid normal Chest Chest palpation & inspection: normal inspection of the chest, normal palpation of entire chest wall and no tenderness Resp Other: PERCUSSION NOTE IS RESONANT, BREATH SOUNDS ARE SLIGHTLY DISTANT. BUT NO AUDIBLE WHEEZES OR RHONCHI ARE HEARD Cardio Palpation: normal PMI Rate: regular rate Rhythm: regular rhythm Heart sounds: no gallops and no murmurs Peripheral pulses: Peripheral pulses 2+ throughout GI Palpation (GI): Soft to palpation, nontender, No hepatosplenomegaly present and no masses Auscultation: normal bowel sounds Back/Spine/Pelvis Thoracic/Lumbar Spine: thoracic and lumbar spine normal to inspection and thoraco-lumbar ROM limited Skin General skin exam: no rashes or lesions noted Neuro General: patient oriented x3 and no focal motor deficits Cranial nerves: Yes CN's II-XII intact bilaterally Extrem General: Yes normal to inspection, Yes no clubbing, cyanosis or edema and Yes no calf tenderness Psych Appearance: grossly normal and well kempt Speech and movement: Normal speech and movement present Results Reviewed Results Reviewed: He used his CPAP only for 16 nights during the past month and stop using after March 06. While he was using the CPAP he was using only for about 3 hours 9 minutes, and he still had residual AHI of 8.3. Assessment & Plan Assessment & Plan (1) Obesity (BMI 30-39.9): Comment: THIS GENTLEMAN IS GROSSLY OBESE , HAS A ROUND FACE, OBESE NECK ( 20 ) ALL THE FEATURES GO ALONG WITH OBSTRUCTIVE SLEEP APNEA. Code(s): E66.9 - Obesity, unspecified Plan: STRESSED THAT HE HAS TO LOSE WEIGHT. EXPLAINED TO THE PATIENT AND HIS YOUNGER BROTHER WHO CAME WITH HIM, THAT HE HAS TO CUT DOWN THE USE OF CARBOHYDRATES. ALSO STRESS THAT HE SHOULD WALK AT LEAST 2 MILES EVERY DAY. HE PROMISES TO DO THAT. (2) TALIA (obstructive sleep apnea): Comment: HAS LONGSTANDING HISTORY OF SLEEP APNEA, AT LEAST SINCE 2008. HAS PREVIOUSLY USED CPAP. AFTER HIS RECENT SLEEP STUDY, HE WAS DOING WELL WITH THE CPAP THERAPY. BUT NOW HE HAS RETURNED HIS CPAP DEVICE AND IS NOT AGREEABLE TO START THE CPAP. HE CLAIMS THAT HE IS SLEEPING WELL, . AND DENIES DAYTIME SLEEPINESS I TOLD HIM TO MONITOR FOR SYMPTOMS OF SLEEP APNEA. I WILL RECHECK HIM IN 6 MONTHS. Code(s): G47.33 - Obstructive sleep apnea (adult) (pediatric) Plan: ABOVE (3) CLEMENTE (dyspnea on exertion): Comment: HAS MILD DYSPNEA ON EXERTION LIKE WALKING FAST. BUT NO COUGH OR. WHEEZING AT REST IT SEEMS TO BE RELATED TO HIS GROSS OBESITY, AND MODERATE RESTRICTIVE PULMONARY DISORDER CONFIRMED BY PULMONARY FUNCTION TEST. Code(s): R06.09 - Other forms of dyspnea Plan: ADVISE THAT HE HAS TO LOSE WEIGHT ALSO ADVISED TO DO DEEP BREATHING EXERCISES 2 TO 3 TIMES A DAY (4) Allergic rhinitis: Comment: HE HAS MILD INTERMITTENT ALLERGIC RHINITIS Code(s): J30.9 - Allergic rhinitis, unspecified Plan: MAY USE ATROVENT NASAL SPRAY 2 SPRAYS IN EACH NOSTRIL B.I.D., NEEDED Coding Level of Care Code Est Pt Level 3 (00073) Diagnoses Obesity (BMI 30-39.9) E66.9 TALIA (obstructive sleep apnea) G47.33 CLEMENTE (dyspnea on exertion) R06.09 Allergic rhinitis J30.9
== END 2023-03-24 14:24 | disposition home or self-care (01) ==
PROVIDERS: PCP Internal Medicine; Visit Provider Internal Medicine
DX: E66.9 Obesity, unspecified (principal); G47.33 Obstructive sleep apnea (adult) (pediatric); R06.09 Other forms of dyspnea; J30.9 Allergic rhinitis, unspecified
CPT/HCPCS: 99213

== ENCOUNTER → 2023-03-24 13:54 | Outpatient (BNVA) | payer MEDICARE, MEDICAID, SELFPAY | PROVIDERS: PCP Internal Medicine; Visit Provider Internal Medicine | DX: G47.33 Obstructive sleep apnea (adult) (pediatric) (principal); R06.09 Other forms of dyspnea; J30.9 Allergic rhinitis, unspecified; E66.9 Obesity, unspecified; Z68.39 Body mass index [BMI] 39.0-39.9, adult | CPT/HCPCS: 99212 ==

== ENCOUNTER 2023-08-12 09:02 | Outpatient (REF) | payer MEDICARE, MEDICAID, SELFPAY ==
[2023-08-12 11:46] LABS: MANUAL DIFF FLAG NO
[2023-08-12 11:48] LABS: Basophils Absolute Auto 0.1 X10*3/uL (0.0-0.2); Basophils Percent Auto 0.8 % (0-2); Eosinophils Absolute Auto 0.6 X10*3/uL (0.0-0.4); Eosinophils Percent Auto 5.5 % (0-4); Hematocrit 51.1 % (42.0-52.0); Imm Gran Abs Auto 0.03 X10*3/uL (0.00-0.03); Imm Gran Pct Auto 0.3 % (0.0-0.4); Lymphocytes Absolute Auto 1.9 X10*3/uL (1.2-4.9); Mean Corpuscular HGB Conc 33.3 g/dl (31.0-36.0); Mean Corpuscular Hemoglobin 30.6 pg (27.0-33.0); Mean Corpuscular Volume 92.1 fL (80.0-98.0); Mean Platelet Volume 9.8 fL (9.4-12.4); Monocytes Absolute Auto 0.9 X10*3/uL (0.1-1.2); Monocytes Percent Auto 8.5 % (2-11); Neutrophils Absolute Auto 7.1 x10*3/uL (2.0-8.3); Neutrophils Percent Auto 66.9 % (45-73); Platelet Count 289 X10*3/uL (160-400); Red Blood Count 5.55 X10*6/uL (4.60-5.80); Red Cell Distribution Width 13.9 % (11.0-16.0); White Blood Count 10.7 X10*3/uL (4.8-10.8)
[2023-08-12 12:25] LABS: Alanine Aminotransferase 23 U/L (0-40); Albumin Level 4.4 g/dL (3.5-5.0); Alkaline Phosphatase 75 U/L (39-117); Anion Gap 12 (12-20); Aspartate Amino Transferase 20 U/L (5-37); Bilirubin Direct 0.4 mg/dL (0.0-0.5); Bilirubin Total 0.9 mg/dL (0.0-1.0); Blood Urea Nitrogen 12 mg/dL (9-16); Calcium 9.2 mg/dL (8.4-10.2); Carbon Dioxide 27 mmol/L (22-29); Chloride 106 mmol/L (96-108); Cholesterol 85 mg/dL (<200); Estimated Glomerular Filt Rate > 60; Glucose Random 120 mg/dL (60-115); HDL Cholesterol 27 mg/dL (>40); LDL Cholesterol Calculated 41 mg/dL (<100); Sodium 141 mmol/L (135-145); Triglycerides 85 mg/dL (<150)
[2023-08-12 12:31] LABS: Creatinine Urine 169.84 mg/dL; Microalbum/Creatinine Ratio Ur 5.8 ug/mg cr (<30)
[2023-08-12 12:47] LABS: Vitamin B12 323 pg/mL (200-900)
[2023-08-13 04:36] LABS: ~Hepatitis B Surface Antibody NONREACTIVE (Nonreactive)
== END 2023-08-12 09:03 | disposition home or self-care (01) ==
LOC: HO.HHCL 09:02
PROVIDERS: Visit Provider Internal Medicine
DX: E11.65 Type 2 diabetes mellitus with hyperglycemia (principal); Z79.4 Long term (current) use of insulin; Z11.59 Encounter for screening for other viral diseases; Z72.89 Other problems related to lifestyle
CPT/HCPCS: 36415; 80048; 80061; 80076; 82043; 82570; 82607; 85025; 86706

== ENCOUNTER 2023-11-22 09:01 | Outpatient (REF) | payer MEDICARE, MEDICAID, SELFPAY ==
--- NOTE | 2023-11-22 12:53 | MHC.AU.HA1 ---
Hearing Aid Evaluation Date of Visit: 11/22/23 Counter Tender Used: Chinese- In Person Historical Information: Description of Hearing: Moderately severe sensorineural hearing loss, bilateral. Current personal amplification information, if applicable: None. Summary: Wallace was fit with binaural hearing aids in 2016. He reports they were helpful but he lost them and they are now out of warranty. He is interested in getting new hearing aids at this time. He reports that he would prefer to try ITE style hearing aids this time as he has problems with the BTEs breaking. He would like rechargeable hearing aids. Impressions taken without incidence Au. Hearing Aid Prescription: Based on the individual?s shared listening needs, communication environments, dexterity, desire for connectivity, and personal preferences, the following prescription for amplification has been made: Right ear: Make, Model, Color: SANDRA.KERI AI.20.ITE.R. Battery Size: Rechargeable Cell Tester/Slim Tube: Type of Earmold/Dome/CShell/SlimTip: Left ear: Make, Model, Color: SANDRA.KERI AI.20.ITE.R. Battery Size: Rechargeable Cell Tester/Slim Tube: Type of Earmold/Dome/CShell/SlimTip: Plan of Care: Patient wishes to purchase hearing aids as prescribed Action Taken/Action Needed: Earmold Impressions Taken Medical Clearance to be requested from PCP/ENT Hearing Instrument Fitting to be scheduled when materials arrive Primary Diagnosis: H90.3 Bilateral Sensorineural Hearing Loss Signature: Provider: Vidal Mack, CCC-A
== END 2023-11-22 09:02 | disposition home or self-care (01) ==
LOC: HO.SH 09:01
PROVIDERS: Visit Provider Internal Medicine
DX: Z01.118 Encounter for examination of ears and hearing with other abnormal findings (principal); Z46.1 Encounter for fitting and adjustment of hearing aid; H90.3 Sensorineural hearing loss, bilateral
CPT/HCPCS: 92557; 92591; V5275

== ENCOUNTER 2024-01-05 14:13 | Outpatient (REF) | payer MEDICARE, MEDICAID, SELFPAY ==
--- NOTE | 2024-01-07 08:22 | MHC.AU.HA2 ---
Hearing Instrument Fitting- Adult- Binaural Date of Visit: 01/05/24 Vehicle Maintenance Technician Used: M[place]ese, [facility] in person. Hearing Instruments Dispensed: Right Ear: Make, Model, Color, Serial Number: NEIDA PARDO.20.ITE.R. Morena S#[id number] Enamel Sprayer Repair Warranty: 01/12/2027 Enamel Sprayer Loss and Damage Warranty: 01/12/2027 [facility] Service Plan: 01/04/2025 Battery Size: Rechargeable Type of Wax Guard: Hear Clear Left Ear: Make, Model, Color, Serial Number: NEIDA PARDO.20.ITE.R. Jameson S#[id number] Enamel Sprayer Repair Warranty: 01/12/2027 Enamel Sprayer Loss and Damage Warranty: 01/12/2027 [facility] Service Plan: 01/04/2025 Earmold/Dome/CShell/SlimTip: Type of Wax Guard: Hear Clear Accessories/Assistive Technology: [employer] SL 2.0 custom battery charger S#[id number] Warranty 01/12/2027 Summary of Fitting: Fit with and oriented to binaural Genny PARDO 20 ITE R HAs. Verified to L Adult 5 targets. Good subjective comfort and benefit reported. VC disabled at this time. Not connected with a phone at this time. Reviewed maintenance, precautions, charging. Practiced insertion and removal. Recommendations: Recommendations: Hearing instrument care and maintenance were discussed and practiced. A hearing instrument follow-up was scheduled. Diagnosis Code(s): Primary Diagnosis: H90.3 Bilateral Sensorineural Hearing Loss Signature: Provider: Vidal Mack, [facility]
== END 2024-01-05 14:14 | disposition home or self-care (01) ==
LOC: HO.HAP 14:13
PROVIDERS: Visit Provider Internal Medicine
DX: Z46.1 Encounter for fitting and adjustment of hearing aid (principal); H90.3 Sensorineural hearing loss, bilateral
CPT/HCPCS: V5011; V5020; V5160; V5260

== ENCOUNTER 2024-02-04 11:00 | Outpatient (REF) | payer MEDICARE, MEDICAID, SELFPAY ==
--- NOTE | 2024-02-04 12:16 | MHC.AU.HA3 ---
Hearing Instrument Follow-Up- Binaural Date of Visit: 02/04/24 Right Ear: Jim, , Color, Serial Number: NEIDA AI.20.ITGary Berg S#[id number] Assistant Plant Controller Repair Warranty: 01/12/2027 Assistant Plant Controller Loss and Damage Warranty: 01/12/2027 [facility] Service Plan: 01/04/2025 Battery Size: Rechargeable Earmold/Dome/CShell/SlimTip: Type of Wax Guard: Hear Clear Dispensed By: [facility] Date of Fittin01/05/24 Left Ear: Jim, Model, Color, Serial Number: NEIDA AI.20.HONEY Berg S#[id number] Assistant Plant Controller Repair Warranty: 01/12/2027 Assistant Plant Controller Loss and Damage Warranty: 01/12/2027 [facility] Service Plan: 01/04/2025 Battery Size: Rechargeable Earmold/Dome/CShell/SlimTip: Type of Wax Guard: Hear Clear Dispensed By: [facility] Date of Fittin01/05/24 Follow-Up Summary: Here for follow up. Reports good satisfaction with the hearing aids. Reports preferring them over the BTEs he had tried in the past. Reports his cat chewed the charging cord and he has been using a different cord and it has been working. Will request a replacement from Genny. No other concerns. No adjustment needed. Reviewed maintenance and practiced changing wax guards. Recommendations: Recommendations: Hearing instrument follow-up or maintenance as needed. Diagnosis Code(s): Primary Diagnosis: H90.3 Bilateral Sensorineural Hearing Loss Signature: Student/Clinical Fellow: I have reviewed/agreed with student/fellow documentation: Provider: Vidal Mack, CCC-A
== END 2024-02-04 11:01 | disposition home or self-care (01) ==
LOC: HO.HAP 11:00
PROVIDERS: Visit Provider Internal Medicine
DX: Z13.89 Encounter for screening for other disorder (principal)

== ENCOUNTER 2024-03-29 11:02 | Outpatient (REF) | payer MEDICARE, MEDICAID, SELFPAY ==
[2024-03-29 13:34] LABS: Alanine Aminotransferase 18 U/L (0-40); Albumin Level 4.1 g/dL (3.5-5.0); Alkaline Phosphatase 71 U/L (39-117); Aspartate Amino Transferase 29 U/L (5-37); Bilirubin Direct 0.3 mg/dL (0.0-0.5); Bilirubin Total 0.6 mg/dL (0.0-1.0); Cholesterol 76 mg/dL (<200); HDL Cholesterol 24 mg/dL (>40); LDL Cholesterol Calculated 33 mg/dL (<100); Total Protein 7.9 g/dL (6.5-8.0); Triglycerides 99 mg/dL (<150)
== END 2024-03-29 11:03 | disposition home or self-care (01) ==
LOC: HO.HHCL 11:02
PROVIDERS: Visit Provider Internal Medicine
DX: E78.5 Hyperlipidemia, unspecified (principal)
CPT/HCPCS: 36415; 80061; 80076

== ENCOUNTER 2024-04-07 16:10 | Outpatient (REF) | payer MEDICARE, MEDICAID, SELFPAY ==
--- OUTSIDE RECORDS SUMMARY | 2024-04-07 16:15 | XMS_ITS | Encounter Summary ---
Author Organization [employer] Address [address] [place] [address] Care Team Providers Care Box Lining Machine Feeder Name Role Phone Santa Grady MD Primary Care Provide r Michelle Coats PharmD Unavailable [phone] Reason for Visit * Reason Comments Med Refill Encounter Details Date Type Department Care Team (Late st Contact Info) Description 04/07/2023 Refill [facility] [address] [place], [place] [phone] Santa Grady MD [address] [place] [address] Type 2 diabetes mellitus with hyperglycemia, with long-term current use of insulin ([facility]) Social History Tobacco Use Types Packs/Day Years Used Date Smoking Tobacco: Never Passive Smoke Exposure: Never Smokeless Tobacco: Never Depression Answer Date Recorded Patient Health Questionnaire-9 Score 0 12/16/2022 Patient Health Questionnaire-9 Score 0 12/16/2022 Last PHQ-9: Questionnaire Data Not on file 1 Housing Stability Answer Date Recorded What is your housing situation today? I have prasanna agustin 12/16/[address] you li ve. Do you have problems with any of the following? None of the above 12/16/2022 Food Insecurity Answer Date Recorded Within the past 12 months, y ou worried that your food would run out before you got money to buy more: Never True 12/16/2022 Within the past 12 months,th e food you bought just didn't last and you didn't have enough money to get more: Never True Transportation Answer Date Recorded In the past 12 months, has l ack of transportation kept you from medical appts, meetings, work or from getting things needed for daily living? No 12/16/2022 Utilities Answer Date Recorded In the past 12 months, has t he electric, gas, oil or water company threatened to shut off services in your home? No 12/16/2022 Depression Answer Date Recorded Patient Health Questionnaire-2 Score 0 12/16/2022 Sex and Gender Information Value Date Recorded Sex Assigned at Male 12/22/2021 10:15 AM EDT Legal Sex Male 10:15 AM EDT Gender Identity Male 12/22/2021 10:15 AM EDT Sexual Orientation Choose not to disclose 2021 10:15 AM EDT documented as of this encounter Plan of Treatment Upcoming Encounters Date Type Department Care Team (Late st Contact Info) Description 04/25/2024 2:00 PM EST Medication Management [facility] MED[facility]INE [address] [place] [phone] Michelle Coats PharmD [address] [place] [phone] 07/06/2024 11:00 AM EDT Office Visit [facility] [address] [place] [phone] Santa Grady MD [address] [place] [phone] documented as of this encounter Visit Diagnoses Diagnosis Type 2 diabetes mellitus with hyperglycemia, with long-term current use of insulin ([facility]) documented in this encounter Additional Health Concerns Assessment Noted Time PHQ-9 Depression Total Score: 0 12/17/19 23 11:27 AM EDT documented as of this encounter Care Teams Box Lining Machine Feeder Relationship Specialty Start Date End Date Santa Grady MD [address] [place] [phone] PCP - General Family Medicine 12/13/17 Michelle Coats, SpencerD [address] [place] [phone] Pharmacist Internal Medicine 08/10/23 documented as of this encounter
--- OUTSIDE RECORDS SUMMARY | 2024-04-07 16:15 | XMS_ITS | Encounter Summary ---
Author Organization [employer] [facility] Address [address] [place] [address] [address] [address] Care Team Providers Care Seo Executive Name Role Phone Santa Grady MD Primary Care Provide r Michelle Coats PharmD Unavailable Encounter Details Date Type Department Care Team (Late st Contact Info) Description 01/30/2022 Orders Only [facility] [address] [place] [address] [phone] Ying Tipton LPN Social History Tobacco Use Types Packs/Day Years Used Date Smoking Tobacco: Never Assessed Sex and Gender Information Value Date Recorded [...] Description 04/25/2024 2:00 PM EST Medication Management [facility] [address] [place] [phone] Michelle Coats, PharmD [address] [place] [address] 07/06/2024 11:00 AM EDT Office Visit [facility] [address] [place] [phone] Santa Grady MD [address] [place] [address] [phone] documented as of this encounter Procedures Procedure Name Priority Date/Time Associated Diagnosis Comments HEMATOXYLIN AND EOSIN STAIN Routine 02/04/2022 9:42 AM EST GLUCOSE, WHOLE BLOOD Routine 02/04/2022 8:44 AM EST documented in this encounter Results * Hematoxylin and Eosin Stain (02/04/2022 9:42 AM EST) 02/04/2022 9:42 AM EST 02/04/2022 11:35 AM EST Narrative [facility] - 02/05/2022 11:00 AM EST ----- ------- Name: Wallace Jones ? Age/Sex: 62/M ? : 1960 Unit#: [id number] ?? Attend Dr: Taina Choudhary MD ?Re02/04/22 ?Status: DEP [facility] ? Location: HO.SSS ?Disch: ? ----- ------- SPEC : [id number] ? RECD: 02/04/225 ? STATUS: ??SOUT ? REQ NUM: [id number] ? RADHA: 02/04/2242 ? SUBM DR: Taina Choudhary MD ? ENTERED: ??02/04/22-1201 ?SP TYPE: Surgical ? OTHR DR: Santa Grady MD ? ORDERED: ??HE Stain/12, Gross Micro L4/4 ? COMMENTS: Part A: ??The tissue fragments are tiny and may be difficult ?to identify during processing and may fail to survive ?processing. ? Diagnosis ?? A. ??Colon, cecal polyp: ??Tubular adenoma; negative for high-grade dysplasia and ?? carcinoma. ? B. ??Colon, ascending, polyp: ??Tubular adenoma; negative for high-grade dysplasia and ?? carcinoma. ? C. ??Colon, transverse, polyp: ??Tubular adenoma; negative for high-grade dysplasia and ?? carcinoma. ? D. ??Colon, sigmoid, polyp: ??Tubular adenoma; negative for high-grade dysplasia and ?? carcinoma. ?Clinical History Pre-Op Dx: ??Screening Post-Op Dx: Colon polyps, diverticulosis, internal hemorrhoids ?Microscopic Description Microscopic sections reviewed. ? Material Received ?? A: Cecal polyp ?? B: Ascending colon polyp ?? C: Transverse colon polyp ?? D: Sigmoid polyp ? Gross Description Received in four parts. Part A: ??Received in formalin labeled Cecal polyp are three glistening, semitranslucent, soft, liu-pink, irregular tissue fragments, ranging from minute to 0.25 cm. in greatest dimension, which are submitted in toto in a single cassette labeled A. Part B: ??Received in formalin labeled Ascending colon polyp are several glistening, semitranslucent, soft, liu and liu-pink, irregular, rectangular and papular tissue fragments, ranging from 0.2 to 0.45 cm. in greatest dimension and aggregating 1.8 x 1.5 x ? CONTINUED ON NEXT PAGE ----- ------- Name: Wallace Jones ? Age/Sex: 62/M ? : 1960 Unit#: [id number] ?? Attend Dr: Taina Choudhary MD ?Re02/04/22 ?Status: DEP [facility] ? Location: HO.SSS ?Disch: ? ----- ------- SPEC : [id number] ? RECD: 02/04/22 ? STATUS: ??SOUT ? REQ NUM: [id number] ? RADHA: 02/04/22-0942 ? SUBM DR: Taina Choudhary MD ? ENTERED: ??02/04/22-1201 ?SP TYPE: Surgical ? OTHR DR: Santa Grady MD ? ORDERED: ??HE Stain/12, Gross Micro L4/4 ? COMMENTS: Part A: ??The tissue fragments are tiny and may be difficult ?to identify during processing and may fail to survive ?processing. ? Gross Description ?(Continued) 0.3 cm. ??The specimen is submitted in toto in a single cassette labeled B. Part C: ??Received in formalin labeled Transverse colon polyp are four glistening, semitranslucent, soft, liu and liu-pink, irregular, rectangular and papular tissue fragments, ranging from 0.25 to 0.5 cm. in greatest dimension, which are submitted in toto in a single cassette labeled C. Part D: ??Received in formalin labeled Sigmoid polyp are four glistening, semitranslucent, soft, liu and liu-pink, irregular and papular tissue fragments, ranging from 0.35 to 0.45 cm. in greatest dimension, which are submitted in toto in a single cassette labeled D. CEDS Copies To: ?? Santa Grady MD ?? [address] ?? [place] [address] ?? [phone] ?? Taina Choudhary MD ?? [address] ?? [place] [address] ?? [phone] ----- ------- Signed (signature on file) Kate Arabella 02/05/22 1100 ? ----- ------- ? END OF REPORT ? [facility] External Provider LAB BLO OD ORDERABLES Final Result Performing Organization Address [facility] de Phone Number [facility] [address] [place] [address] [phone] * (ABNORMAL) GLUCOSE, WHOLE BLOOD (02/04/2022 8:44 AM EST) Glucose, Whole Blood 158(H) 60 - 115 mg/dL [facility] Comment:METER #: [id number] 02/04/2022 8:44 AM EST 02/04/2022 8:57 AM EST [facility] External Provider LAB BLO OD ORDERABLES Final Result Performing Organization Address [facility] de Phone Number [facility] [address] [place] [address] [phone] documented in this encounter Visit Diagnoses Not on filedocumented in this encounter Care Teams Seo Executive Relationship Specialty Start Date End Date Santa Grady MD [address] [place] [phone] PCP - General Family Medicine 12/13/17 Michelle Coats, Rosalee [address] [place] [phone] Pharmacist Internal Medicine 08/10/23 documented as of this encounter
--- OUTSIDE RECORDS SUMMARY | 2024-04-07 16:15 | XMS_ITS | Encounter Summary ---
Author Organization [employer] Address [address] [facility] 7t [place] [address] Care Team Providers Care Shift Production Supervisor Name Role Phone Santa Grady MD Primary Care Provide r Michelle Coats PharmD Unavailable [phone] Reason for Visit * Reason Comments Med Refill Encounter Details Date Type Department Care Team (Late st Contact Info) Description 03/09/2024 Refill [facility] [address] [place], [place] [phone] Santa Grady MD 230 [place], [place] [phone] Type 2 diabetes mellitus with hyperglycemia, with long-term current use of insulin ([facility]) Social History Tobacco Use Types Packs/Day Years Used Date Smoking Tobacco: Former Cigarettes Passive Smoke Exposure: Never Smokeless Tobacco: Never Alcohol Use Standard Drinks/Week Comments Never 0 (1 standard drink = 0.6 oz pur e alcohol) Depression Answer Date Recorded Patient Health Questionnaire-9 [...] Description 04/25/2024 2:00 PM EST Medication Management [facility] [address] [place] [phone] Michelle Coats, PharmD [address] [place] [phone] 07/06/2024 11:00 AM EDT Office Visit [facility] [address] [place] [phone] Santa Grady MD [address] [place] [phone] documented as of this encounter Goals Goal Patient Goal Type Associated Problems Recent Progress Patient-Stated? Author Blood Pressure < 140/90 Blood Pressure 128/54(2024 10:40 AM EST) No Michelle Tirado, PharmD Hemoglobin A1c < 7 Result Component 6.9( 11:42 AM EST) No Michelle Tirado PharmD documented as of this encounter Visit Diagnoses Diagnosis Type 2 diabetes mellitus with hyperglycemia, with long-term current use of insulin ([facility]) documented in this encounter Additional Health Concerns Assessment Noted Time PHQ-9 Depression Total Score: 0 10/25/20 23 11:27 AM EDT documented as of this encounter Care Teams Shift Production Supervisor Relationship Specialty Start Date End Date Santa Grady MD [address] [place] [address] PCP - General Family Medicine 12/13/17 Michelle Coats, Rosalee [address] [place] [address] Pharmacist Internal Medicine 08/10/23 documented as of this encounter
--- OUTSIDE RECORDS SUMMARY | 2024-04-07 16:15 | XMS_ITS | Encounter Summary ---
Author Organization [employer] Address [address] [facility] 7t [place] [address] Care Team Providers Care Beverage Manager Name Role Phone Santa Grady MD Primary Care Provide r Michelle Coats PharmD Unavailable Reason for Visit * Reason Comments Med Refill Encounter Details Date Type Department Care Team (Late st Contact Info) Description 09/07/2022 Refill [facility] [address] [place] [address] Ina Rodriguez FNP [address] [place] [address] Routine health maintenance Social History Tobacco Use Types Packs/Day Years [...] Description 04/25/2024 2:00 PM EST Medication Management [facility] [address] [place] [address] Michelle Coats, PharmD 230 [place] [address] 07/06/2024 11:00 AM EDT Office Visit [facility] [address] [place] [address] Santa Grady MD [address] [place] [phone] documented as of this encounter Visit Diagnoses Diagnosis Routine health maintenance Unspecified examination documented in this encounter Care Teams Beverage Manager Relationship Specialty Start Date End Date Santa Grady MD [address] [place] [address] [phone] PCP - General Family Medicine 12/13/17 Michelle Coats, SpencerD [address] [place] [address] [phone] Pharmacist Internal Medicine 08/10/23 documented as of this encounter
--- OUTSIDE RECORDS SUMMARY | 2024-04-07 16:15 | XMS_ITS | Encounter Summary ---
Author Organization [employer] Address [address] [facility] 7t [place] [address] Care Team Providers Care Corporate Quality Engineer Name Role Phone Santa Grady MD Primary Care Provide r Michelle Coats PharmD Unavailable [phone] Encounter Details Date Type Department Care Team (Late st Contact Info) Description 03/29/2024 Orders Only [facility] [address] [place], [place] [phone] Santa Grady MD [address] [place] [address] Social History Tobacco Use Types Packs/Day Years [...] Description 04/25/2024 2:00 PM EST Medication Management [facility] [address] [place] [phone] Michelle Coats PharmD [address] [place] [phone] 07/06/2024 11:00 AM EDT Office Visit [facility] [address] [place] [phone] Santa Grady MD [address] [place] [phone] documented as of this encounter Goals Goal Patient Goal Type Associated Problems Recent Progress Patient-Stated? Author Blood Pressure < 140/90 Blood Pressure 128/54(2024 10:40 AM EST) No Michelle Tirado, PharmD Hemoglobin A1c < 7 Result Component 6.9( 11:42 AM EST) No Michelle Tirado PharmD documented as of this encounter Procedures Procedure Name Priority Date/Time Associated Diagnosis Comments HEPATIC FUNCTION PANEL Routine 03/29/2024 11:05 AM EST LIPID PANEL, STANDARD Routine 03/29/2024 11:05 AM EST documented in this encounter Results * (ABNORMAL) Lipid Panel, Standard (03/29/2024 11:05 AM EST) Triglycerides 99 <150 mg/dL [facility] Comment:Desirable Triglyceri de: less than 150 mg/dLBorderline High Triglyceride 150-199 mg/dLHigh Triglyceride: 200-499 mg/dLVery High Triglyceride: greater than or equal to 5OO mg/dL Cholesterol 76 <200 mg/dL [facility] Comment:Desirable Cholestero l: less than 200 mg/dLBorderline High Cholesterol: 200-239 mg/dLHigh Cholesterol: greater than 239 mg/dL LDL Cholesterol Calculated 33 <100 mg/dL [facility] Comment:Desirable LDL: less than 100 mg/dLNear Optimal/Above Optimal LDL: 110- 129 mg/dLBorderline High LDL: 130-159 mg/dLHigh LDL: 160-189 mg/dLVery High LDL: greater than or equal to 190 mg/dL HDL Cholesterol 24(L) >40 mg/dL [facility] Comment:Desirable HDL: great er than 40 mg/dL Note: This HDL assay may give artificially low results in patients with liver disease. 03/29/2024 11:0 5 AM EST 03/29/2024 12:59 PM EST us Santa Stapleton MD LAB BLOOD ORDERABLES Final Result [facility] [address] [place] [phone] * Hepatic Function Panel (03/29/2024 11:05 AM EST) Bilirubin, Total 0.6 0.0 - 1.0 mg/dL [facility] Bilirubin, Direct 0.3 0.0 - 0.5 mg/dL [facility] Aspartate Amino Transferase 29 5 - 37 U/L [facility] Alanine Aminotransferase 18 0 - 40 U/L [facility] Total Protein 7.9 6.5 - 8.0 g/dL [facility] Albumin Level 4.1 3.5 - 5.0 g/dL [facility] Alkaline Phosphatase 71 39 - 117 U/L [facility] 03/29/2024 11:0 5 AM EST 03/29/2024 12:59 PM EST us Santa Stapleton MD LAB BLOOD ORDERABLES Final Result [facility] [address] [place] [phone] documented in this encounter Visit Diagnoses Not on filedocumented in this encounter Additional Health Concerns Assessment Noted Time PHQ-9 Depression Total Score: 0 12/17/19 23 11:27 AM EDT documented as of this encounter Care Teams Corporate Quality Engineer Relationship Specialty Start Date End Date Santa Grady MD [address] [place] [address] PCP - General Family Medicine 12/13/17 Michelle Coats, PharmD [address] [place] [phone] Pharmacist Internal Medicine 08/10/23 documented as of this encounter
--- OUTSIDE RECORDS SUMMARY | 2024-04-07 16:15 | XMS_ITS | Encounter Summary ---
Author Organization [employer] Address [address] [facility] 7t [place] [address] Care Team Providers Care Gunner Mate Name Role Phone Santa Grady MD Primary Care Provide r Michelle Coats PharmD Unavailable [phone]- [phone] Encounter Details Date Type Department Care Team (Latest Contact Info) Description 03/28/2024 Travel Social History Tobacco Use Types Packs/Day Years [...] is your housing situation today? I have prasannajair agustin 12/16/[address] you [...] Description 04/25/2024 2:00 PM EST Medication Management [facility] [address] [place] [phone] Michelle Coats, PharmD [address] [place] [phone] 07/06/2024 11:00 AM EDT Office Visit [facility] [address] [place] [phone] Santa Grady MD [address] [place] [phone] documented as of this encounter Goals Goal Patient Goal Type Associated Problems Recent Progress Patient-Stated? Author Blood Pressure < 140/90 Blood Pressure 128/54(2024 10:40 AM EST) No Roldans-Lucy Avalossa, PharmD Hemoglobin A1c < 7 Result Component 6.9( 11:42 AM EST) No Lucy Tirdaosa, PharmD documented as of this encounter Visit Diagnoses Not on filedocumented in this encounter Additional Health Concerns Assessment Noted Time PHQ-9 Depression Total Score: 0 12/17/19 23 11:27 AM EDT documented as of this encounter Care Teams Gunner Mate Relationship Specialty Start Date End Date Santa Grady MD [address] [place] [phone] PCP - General Family Medicine 12/13/17 Michelle Coats, PharmD [address] [place] [phone] Pharmacist Internal Medicine 08/10/23 documented as of this encounter
--- OUTSIDE RECORDS SUMMARY | 2024-04-07 16:15 | XMS_ITS | Encounter Summary ---
Author Organization [employer] Address [address] [facility] 7t [place] [address] Care Team Providers Care Reading Intervention Teacher Name Role Phone Santa Grady MD Primary Care Provide r Michelle Coats PharmD Unavailable [phone] Reason for Visit * Reason Comments Med Refill Encounter Details Date Type Department Care Team (Late st Contact Info) Description 04/03/2024 Refill [facility] [address] [place], [place] [phone] Santa Grady MD [address] [place] [address] Type 2 diabetes mellitus with hyperglycemia, with long-term current use of insulin ([facility]) Social History Tobacco Use Types Packs/Day Years [...] Description 04/25/2024 2:00 PM EST Medication Management [facility] [address] [place] [phone] Michelle Coats, PharmD [address] [place] [phone] 07/06/2024 11:00 AM EDT Office Visit [facility] [address] [place] [phone] Santa Grady MD [address] [place] [phone] documented as of this encounter Goals Goal [...] hyperglycemia, with long-term current use of insulin ([facility]) documented in this encounter Additional Health Concerns Assessment Noted Time PHQ-9 Depression Total Score: 0 10/25/20 23 11:27 AM EDT documented as of this encounter Care Teams Reading Intervention Teacher Relationship Specialty Start Date End Date Santa Grady MD [address] [place] [address] PCP - General Family Medicine 12/13/17 Michelle Coats, Rosalee [address] [place] [address] Pharmacist Internal Medicine 08/10/23 documented as of this encounter
--- OUTSIDE RECORDS SUMMARY | 2024-04-07 16:15 | XMS_ITS | Clinical Summary ---
Author Organization [employer] Address [address] [facility] [address] [place] [address] Care Team Providers Care Communications Maintainer Name Role Phone Santa Grady MD Primary Care Provide r Michelle Coats PharmD Unavailable [phone] Allergies No known active allergies Medications Alcohol Swabs (Alcohol Prep) 70 % pads USE DIRECTED 3 TO 4 TIMES PER DAY 100 each 11 023 Active Blood Glucose Monitoring Suppl (Directly [place]ag Lite) w/Device kitIndications:T ype 2 diabetes mellitus with hyperglycemia, with long-term current use of insulin ([facility]) Use to test blood sugar 2 times daily 1 kit 024 Active Tresiba FlexTouch 100 UNIT/ML injection INJECT 38 UNITS SUBCUTANEOUSLY AT BEDTIME 15 mL 11 024 Active ipratropium (Atrovent) 0.03 % nasal spray USE 2 SPRAYS IN EACH NOSTRIL TWICE DAILY FOR NASAL CONGESTION 024 Active clotrimazole (Lotrimin) 1 % cream APPLY TOPICALLY TWICE DAILY FOR 28 DAYS 024 Active aspirin (Aspirin Low Dose) 81 MG EC tablet TAKE 1 TABLET BY MOUTH EVERY MORNING 90 tablet 3 024 Active Jardiance 10 MG TAKE 1 TABLET BY MOUTH EVERY MORNING 90 tablet 3 Active Ketotifen Fumarate 0.035 % solutionIndicati ons:Allergic conjunctivitis of both eyes Administer 1 drop into both eyes if needed each day (use drops if itchiness). 5 mL 1 024 Active SUMAtriptan (Imitrex) 25 MG tabletIndication s:Migraine without status migrainosus, not intractable, unspecified migraine type TAKE 1 TABLET BY MOUTH AT ONSET OF MIGRAINE. MAY REPEAT ONCE AFTER 2 HOURS IF NEEDED DO NOT EXCEED 8 TABLETS DAILY 9 tablet 3 024 Active amLODIPine (Norvasc) 10 MG tabletIndication s:Essential hypertension TAKE 1 TABLET BY MOUTH EVERY MORNING 90 tablet 3 024 Active Multiple Vitamin (Multivitamin) tabletIndication s:Routine health maintenance TAKE 1 TABLET BY MOUTH EVERY MORNING 90 tablet 1 024 Active rosuvastatin (Crestor) 20 MG tabletIndication s:Hyperlipidemia , unspecified hyperlipidemia type Take 1 tablet by mouth once daily 90 tablet 024 Active Ketotifen Fumarate 0.035 % solutionIndicati ons:Allergic conjunctivitis of both eyes Administer 1 drop into affected eye(s) every 12 (twelve) hours. 10 mL Active glucose blood (FreeStyle Precision Luis Test) test stripIndications :Type 2 diabetes mellitus with hyperglycemia, with long-term current use of insulin ([facility]) Use to test blood sugar 2 times daily 100 each 12 024 2024 Active FREESTYLE LITE test stripIndications :Type 2 diabetes mellitus with hyperglycemia, with long-term current use of insulin ([facility]) Use to test blood sugar 2 times daily 100 each 12 024 2024 Active sildenafil (Viagra) 100 MG tabletIndication s:Erectile dysfunction, unspecified erectile dysfunction type TAKE 1 TABLET 1 HOUR BEFORE SEXUAL RELATIONS ONCE DAILY NEEDED. 15 tablet 3 024 Active gabapentin (Neurontin) 300 MG capsuleIndicatio ns:Diabetic polyneuropathy associated with type 2 diabetes mellitus (CMS/HCC) TAKE 1 CAPSULE BY MOUTH THREE TIMES DAILY IN THE MORNING, EVENING, AND BEDTIME 90 capsule 3 024 Active lisinopril 20 MG tablet TAKE 1 TABLET BY MOUTH EVERY MORNING 90 tablet 3 024 Active metFORMIN (Glucophage) 1000 MG tablet TAKE 1 TABLET BY MOUTH TWICE DAILY IN THE MORNING AND IN THE EVENING 180 tablet 3 024 Active traMADol (Ultram) 50 MG tabletIndication s:Multiple joint pain TAKE 1 TABLET BY MOUTH EVERY 6 HOURS NEEDED FOR SEVERE PAIN FOR 7 DAYS 28 tablet 025 Active Lancets 33G miscIndications: Type 2 diabetes mellitus with hyperglycemia, with long-term current use of insulin ([facility]) Test blood sugar twice daily 100 each 11 025 Active Ozempic, 2 MG/DOSE, 8 MG/3ML solution pen-injectorIndi cations:Type 2 diabetes mellitus with hyperglycemia, with long-term current use of insulin ([facility]) Inject 2 MG SUBCUTANEOUSLY EVERY 7 DAYS IN THE ABDOMEN, THIGHS OR UPPER ARM. ROTATE INJECTION SITES. 3 mL 2 Active FREESTYLE LITE test stripIndications :Type 2 diabetes mellitus without complications ([facility]) USE TO TEST BLOOD SUGAR 4 TO 6 TIMES A DAY 100 strip 11 024 2024 Discontinued(M ed list cleanup (will not trigger notification to Pharmacy)) Continuous Glucose Marketing Sales Manager (FreeStyle Cornelius 2 Paicines) deviceIndication s:Type 2 diabetes mellitus with hyperglycemia, with long-term current use of insulin ([facility]) Scan sensor every 8 hours 1 each 024 2024 Discontinued(N on-compliance) Continuous Glucose Sensor (FreeStyle Cornelius 2 Sensor) miscIndications: Type 2 diabetes mellitus with hyperglycemia, with long-term current use of insulin ([facility]) USE DIRECTED AND CHANGE EVERY 14 DAYS 2 each 2 024 2024 Discontinued rosuvastatin (Crestor) 20 MG tabletIndication s:Hyperlipidemia , unspecified hyperlipidemia type TAKE 1 TABLET BY MOUTH AT BEDTIME 90 tablet 024 2024 Discontinued(M ed list cleanup (will not trigger notification to Pharmacy)) Semaglutide, 2 MG/DOSE, (Ozempic, 2 MG/DOSE,) 8 MG/3ML solution pen-injectorIndi cations:Type 2 diabetes mellitus with hyperglycemia, with long-term current use of insulin ([facility]) Inject 0.75 mL (2 mg) under the skin 1 (one) time per week. 3 mL 2 024 2024 Discontinued Continuous Glucose Sensor (FreeStyle Cornelius 2 Sensor) miscIndications: Type 2 diabetes mellitus with hyperglycemia, with long-term current use of insulin ([facility]) USE DIRECTED AND CHANGE EVERY 14 DAYS 2 each 2 025 2024 Discontinued(N on-compliance) Active Problems Problem Noted Date Diagnosed Date Decreased vision 01/07/2024 Decreased hearing of both ears 10/07/2023 Recurrent phimosis of penis 07/07/2023 Tinea pedis of both feet 07/07/2023 Allergic conjunctivitis of both eyes 07/07/2023 Anal polyp 12/16/2022 Hearing impaired 09/15/2022 Diabetic polyneuropathy asso ciated with type 2 diabetes mellitus 09/15/2022 Balanitis 06/05/2022 Chronic low back pain 06/05/2022 Essential hypertension 06/05/2022 Assessment & Plan (01/07/2024 4:26 PM EST): Maintenance: BMP: up to date Lipid Panel: up to date I advise: - Aerobic exercise to reduce BP. Initial goal of 30 min walk 3-5x/week. Increase as tolerated. - low-sodium diet (goal: <2g/day) and heart healthy diet such as DASH to reduce BP and prevent ASCVD. - Home BP monitoring 1-2 x day with goal of <140/90. - Seek immediate medical attention for chest pain, palpitations, SOB, syncope, or sudden changes in mental status. - Do not change or discontinue current prescriptions without first consulting health care provider Assessment & Plan (10/07/2023 3:02 PM EDT): Controlled, I advise: - Aerobic exercise to reduce BP. Initial goal of 30 min walk 3-5x/week. Increase as tolerated. - low-sodium diet (goal: <2g/day) and heart healthy diet such as DASH to reduce BP and prevent ASCVD. - Home BP monitoring 1-2 x day with goal of <140/90. - Seek immediate medical attention for chest pain, palpitations, SOB, syncope, or sudden changes in mental status. - Do not change or discontinue current prescriptions without first consulting health care provider Assessment & Plan (04/07/2023 4:34 PM EST): Maintenance: BMP: up to date Lipid Panel: up to date ASCVD Risk: high risk on atrovastin 40mg daily and ASA 81mg daily - Aerobic exercise to reduce BP. Initial goal of 30 min walk 3-5x/week. Increase as tolerated. - low-sodium diet (goal: <2g/day) and heart healthy diet such as DASH to reduce BP and prevent ASCVD. - Home BP monitoring 1-2 x day with goal of <140/90. - Seek immediate medical attention for chest pain, palpitations, SOB, syncope, or sudden changes in mental status. - Do not change or discontinue current prescriptions without first consulting health care provider Assessment & Plan (12/16/2022 12:34 PM EDT): Not control I added amlodipine 5mg I advise low Na diet and weight reduction Assessment & Plan (09/15/2022 3:13 PM EDT): - Aerobic exercise to reduce BP. Initial goal of 30 min walk 3-5x/week. Increase as tolerated. - low-sodium diet (goal: <2g/day) and heart healthy diet such as DASH to reduce BP and prevent ASCVD. - Home BP monitoring 1-2 x day with goal of <140/90. - Seek immediate medical attention for chest pain, palpitations, SOB, syncope, or sudden changes in mental status. - Do not change or discontinue current prescriptions without first consulting health care provider Heartburn 06/05/2022 Multiple joint pain 06/05/2022 Type 2 diabetes mellitus wit h hyperglycemia, with long-term current use of insulin 10/15/2011 Assessment & Plan (01/07/2024 4:27 PM EST): Diabetes is: almost at goal - Lab Results Component Value Date HGBA1C 6.9 (A) 01/07/2024 HGBA1C 6.7 (A) 10/07/2023 HGBA1C 9.5 (A) 07/07/2023 - Lab Results Component Value Date MICROALBUR 10.0 08/12/2023 CREATININE 0.91 08/12/2023 -Changes: I went up on ozempic, /w rest of medications - Diabetic eye exam:up to date - Diabetic foot exam:pending - Continue lifestyle modifications - Continue current medications - Follow up: 3 months Assessment & Plan (10/07/2023 3:03 PM EDT): Diabetes is: controlled - Lab Results Component Value Date HGBA1C 6.7 (A) 10/07/2023 HGBA1C 9.5 (A) 07/07/2023 HGBA1C 7.6 (A) 04/07/2023 - Lab Results Component Value Date MICROALBUR 10.0 08/12/2023 CREATININE 0.91 08/12/2023 -Changes: none - Diabetic eye exam:up to date - Diabetic foot exam: pending - Continue lifestyle modifications - Continue current medications - Follow up: 3 months Assessment & Plan (04/07/2023 4:35 PM EST): Diabetes is: almost at goal - Lab Results Component Value Date HGBA1C 7.6 (A) 04/07/2023 HGBA1C 9.0 (A) 12/16/2022 HGBA1C 8.8 (A) 09/15/2022 - Lab Results Component Value Date MICROALBUR 1.2 01/04/2020 -Changes: none - Diabetic eye exam:up to date - Diabetic foot exam:up to date - Continue lifestyle modifications - Continue current medications - Follow up: 3 months Assessment & Plan (12/16/2022 12:33 PM EDT): - Lab Results Component Value Date HGBA1C 9.0 (A) 12/16/2022 HGBA1C 8.8 (A) 09/15/2022 HGBA1C 7.0 (H) 07/29/2020 - Lab Results Component Value Date MICROALBUR 1.2 01/04/2020 - Continue lifestyle modifications - Continue current medications, I increase his trulicity to 1.5mg weekly Assessment & Plan (09/15/2022 3:40 PM EDT): - Lab Results Component Value Date HGBA1C 7.0 (H) 07/29/2020 HGBA1C 9.3 (H) 01/04/2020 HGBA1C 9.3 (H) 01/04/2020 - Lab Results Component Value Date MICROALBUR 1.2 01/04/2020 - Diabetic eye exam:referral today - Continue lifestyle modifications - I added trulicity today c/w same insulin regimen, jardiance and metformin Hyperlipidemia 10/15/2011 Obesity 10/15/2011 Assessment & Plan (01/07/2024 4:26 PM EST): Counseling done Obstructive sleep apnea syndrome 10/15/2011 Encounters Date Type Department Care Team Description 04/03/2024 Refill [facility] [address] [facility] [place] [address] Santa Grady MD Type 2 diabetes mellitus with hyperglycemia, with long-term current use of insulin ([facility]) 03/29/2024 Orders Only [facility] [address] [facility] [place] [address] Santa Grady MD 03/28/2024 Travel 03/09/2024 Refill [facility] [address] [facility] [place] [address] Santa Grady MD Type 2 diabetes mellitus with hyperglycemia, with long-term current use of insulin (CMS/[facility]) 03/06/2024 Refill [facility] [address] [facility] [place] [address] Santa Grady MD Multiple joint pain 02/08/2024 Refill [facility] [address] [facility] [place] [address] Santa Grady MD 02/04/2024 Refill [facility] [address] [place] [address] Santa Grady MD Diabetic polyneuropathy associated with type 2 diabetes mellitus (CMS/[facility]) 01/24/2024 Telephone [facility] [address] [facility] [place] [address] Santa Grady MD 01/18/2024 Orders Only [facility] [address] [facility] [place] [address] Santa Grady MD Type 2 diabetes mellitus with hyperglycemia, with long-term current use of insulin (CMS/[facility]) (Primary Dx) 01/18/2024 Telephone [facility]INE [address] [facility] [phone] Santa Grady MD 01/12/2024 Telephone [facility] MED[facility]INE [address] [place] [address] Lupe Ross RN Med B form 01/07/2024 11:15 AM EST Office Visit [facility] [address] [place] [address] Santa Grady MD Decreased vision (Primary Dx); Type 2 diabetes mellitus with hyperglycemia, with long-term current use of insulin (CMS/HCC); Allergic conjunctivitis of both eyes; Multiple joint pain; Erectile dysfunction, unspecified erectile dysfunction type; Encounter for immunization; Essential hypertension; Dietary counseling; Exercise counseling; Class 2 severe obesity with serious comorbidity and body mass index (BMI) of 35.0 to 35.9 in adult, unspecified obesity type (CMS/HCC) from Last 3 Months Immunizations Name Administration Dates Next Due HepB-CpG 03/28/2024,09/10/2023 Influenza injectable quadriv alent IIV4 with preservative 12/15/2017,01/06/2017 Influenza injectable quadriv alent preservative free 12/16/2022,04/08/2016,02/26/2015 Influenza, IIV3, injectable 12/25/2013, 1 Influenza, Split (incl. selma fied surface antigen) 11/15/2012,01/28/2012 Influenza, seasonal, injecta ble, preservative free 01/07/2024 Pfizer Covid-19 Vaccine 12+ 01/07/2024, Pfizer Covid-19 Vaccine 12+ Bivalent 04/01/2022 Pneumococcal Conjugate PCV 20 09/10/2023 Pneumococcal Polysaccharide PPSV23 10/04/2000 Pneumococcal, Unspecified 10/04/2000 TD (adult), 2 Lf tetanus tox oid, preservative free, adsorbed 03/21/2010,10/04/2000 Tdap 01/16/2013 Zoster, Recombinant 04/18/2020,12/15/2019 Social History Tobacco Use Types Packs/Day Years Used Date Smoking Tobacco: Former Cigarettes Passive Smoke Exposure: Never Smokeless Tobacco: Never Tobacco Cessation:Counseling Given: Not Answered Alcohol Use Standard Drinks/Week Comments Never 0 [...] not to disclose 2021 10:15 AM EDT Last Filed Vital Signs Vital Sign Reading Time Taken Comments Blood Pressure 128/54 03/28/2024 10:40 AM EST Pulse 70 03/28/2024 10:40 AM EST Temperature 35.4 ??C (95.7 ??F) 01/07/2024 11:[address] Respiratory Rate 20 01/07/2024 11:31 AM EST Oxygen Saturation 97% 01/07/2024 11:31 AM EST Inhaled Oxygen Concentration - - Weight 97.3 kg (214 lb 9.6 oz) 01/07/2024 11:31 AM EST Height 165.1 cm (5' 5 ) 01/07/2024 11:31 AM EST Body Mass Index 35.71 01/07/2024 11:31 AM EST Plan of Treatment Upcoming Encounters Date Type Department Care Team (Late st Contact Info) Description 04/25/2024 2:00 PM EST Medication Management [facility] MED[facility]INE [address] [place] [phone] Michelle Coats, PharmD [address] [place] [address] 07/06/2024 11:00 AM EDT Office Visit [facility] [address] [place] [address] Santa Grady MD [address] [place] [address] Health Maintenance Due Date Last Done Comments CT Colonography 1959 Colonoscopy 1959 Colorectal Cancer Screening 1959 FIT DNA/Cologuard 1959 FIT 1959 FOBT 1959 Sigmoidoscopy 1959 Diabetes: Foot Exam 1969 Alcohol/Substance Use Screening 1971 Hepatitis C Screening 1977 RSV Patients and Patients Aged 60 years or older (1 - Risk 60-74 years 1-dose series) 2019 DTaP/Tdap/Td Vaccines (2 - Td or Tdap) 01/16/2023 01/16/2013, 03/21/2010, 10/04/2000 SDOH Screening 09/16/2023 09/15/2022 Depression Screening 12/17/2023 12/16/2022, 12/17/19 23 Eye Exam 12/22/2023 12/21/2022, 11/24, 12/21/2022, Additional history exists Diabetes: Hemoglobin A1C 07/06/2024 024, 10/07/2023, 07/07/2023, Additional history exists Diabetes: Urine Protein Screening 08/11/2024 08/12/2023, 01/04/2020 Tobacco Screening 01/06/2025 01/07/2024 Lipid Panel 03/29/2025 03/29/2024, 07/24, 04/25/2021, Additional history exists Zoster Vaccines Completed 04/18/2020, 12/15/2019 Pneumococcal Vaccine: 50+ Years Completed 09/10/2023, 10/04/2000, 10/04/2000 COVID-19 Vaccine Completed 01/07/2024, , 04/01/2022, Additional history exists Influenza Vaccine Completed 01/07/2024, , 12/15/2017, Additional history exists Hepatitis B Vaccines Completed 03/28/2024, 09/10/19 HIB Vaccines Aged Out No longer eligi ble based on patient's age to complete this topic HPV Vaccines Aged Out No longer eligi ble based on patient's age to complete this topic Hepatitis A Vaccines Aged Out No long er eligible based on patient's age to complete this topic IPV Vaccines Aged Out No longer eligi ble based on patient's age to complete this topic Meningococcal Vaccine Aged Out No nahum salbador eligible based on patient's age to complete this topic RSV under 20 months Aged Out No longe r eligible based on patient's age to complete this topic Rotavirus Vaccines Aged Out No longer eligible based on patient's age to complete this topic Goals Goal Patient Goal Type Associated Problems Recent Progress Patient-Stated? Author Blood Pressure < 140/90 Blood Pressure 128/54(2024 10:40 AM EST) No Michelle Tirado PharmD Hemoglobin A1c < 7 Result Component 6.9( 11:42 AM EST) No Michelle Tirado PharmD Procedures Procedure Name Priority Date/Time Associated Diagnosis Comments LIPID PANEL, STANDARD Routine 03/29/2024 11:05 AM EST HEPATIC FUNCTION PANEL Routine 03/29/2024 11:05 AM EST POCT GLUCOSE Routine 01/07/2024 11:42 AM EST Type 2 diabetes mellitus with hyperglycemia, with long-term current use of insulin ([facility]) POCT GLYCATED HEMOGLOBIN, TOTAL Routine 01/07/2024 11:42 AM EST Type 2 diabetes mellitus with hyperglycemia, with long-term current use of insulin ([facility]) ALBUMIN, RANDOM URINE W/CREATININE Routine 08/12/2023 9:06 AM EDT from Last 3 Months or Most Recently Relevant to Health Maintenance Results * Hepatic Function Panel (03/29/2024 11:05 AM EST) Bilirubin, Total 0.6 0.0 - 1.0 mg/dL [facility] Bilirubin, Direct 0.3 0.0 - 0.5 mg/dL [facility] Aspartate Amino Transferase 29 5 - 37 U/L [facility] Alanine Aminotransferase 18 0 - 40 U/L [facility] Total Protein 7.9 6.5 - 8.0 g/dL [facility] Albumin Level 4.1 3.5 - 5.0 g/dL [facility] Alkaline Phosphatase 71 39 - 117 U/L [facility] 03/29/2024 11:0 5 AM EST 03/29/2024 12:59 PM EST us Santa Stapleton MD LAB BLOOD ORDERABLES Final Result [facility] [address] [place] [phone] * (ABNORMAL) Lipid Panel, Standard (03/29/2024 11:05 AM EST) Triglycerides 99 <150 mg/dL [facility] Comment:Desirable Triglyceri de: less than 150 mg/dLBorderline High Triglyceride 150-199 mg/dLHigh Triglyceride: 200-499 mg/dLVery High Triglyceride: greater than or equal to 5OO mg/dL Cholesterol 76 <200 mg/dL [facility] Comment:Desirable Cholestero l: less than 200 mg/dLBorderline High Cholesterol: 200-239 mg/dLHigh Cholesterol: greater than 239 mg/dL LDL Cholesterol Calculated 33 <100 mg/dL [facility] Comment:Desirable LDL: less than 100 mg/dLNear Optimal/Above Optimal LDL: 110- 129 mg/dLBorderline High LDL: 130-159 mg/dLHigh LDL: 160-189 mg/dLVery High LDL: greater than or equal to 190 mg/dL HDL Cholesterol 24(L) >40 mg/dL [facility] Comment:Desirable HDL: great er than 40 mg/dL Note: This HDL assay may give artificially low results in patients with liver disease. 03/29/2024 11:0 5 AM EST 03/29/2024 12:59 PM EST Santa Stapleton MD LAB BLOOD ORDERABLES Final Result [facility] [address] [place] [address] [phone] * (ABNORMAL) POCT HGB A1C (01/07/2024 11:42 AM EST) Hemoglobin A1C 6.9(A) 4.0 - 6.0 % QC Media Lot # [id number] Lot# Expiration Date , Blood 01/07/2024 11:4 2 AM EST Santa Stapleton MD POINT OF CARE TEST EN TER/EDIT ORDERABLES Final Result * POCT Glucose (01/07/2024 11:42 AM EST) Glucose Blood, POC 96 60 - 200 mg/dL [employer] Lot # [id number] Lot# Expiration Date ,156,674 Blood Capillary blood specimen / Unknown 01/07/2024 11:42 AM EST Santa Stapleton MD POINT OF CARE TEST EN TER/EDIT ORDERABLES Final Result * Albumin, Random Urine W/Creatinine (08/12/2023 9:06 AM EDT) Creatinine, Urine 169.84 mg/dL [facility] Microalbumin Urine 10.0 mg/L [facility] Microalbum Creatinine Ratio Ur 5.8 <30 ug/mg cr [facility] Comment:Albumin/Creatinine R atio Reference Ranges: Normal: < 30 ug/mg creatinine Microalbuminuria: 30 - 300 ug/mg creatinineClinical Albuminuria: > 300 ug/mg creatinine 08/12/2023 9:06 AM EDT 08/12/2023 11:26 AM EDT Santa Stapleton MD LAB URINE ORDERABLES Final Result Performing Organization Address City/State/[facility] Co de Phone Number [facility] [address] [place] [address] [phone] from Last 3 Months or Most Recently Relevant to Health Maintenance Insurance Care Teams Communications Maintainer Relationship Specialty Start Date End Date Santa Grady MD [address] [place] [phone] PCP - General Family Medicine 12/13/17 Michelle Coats, SpencerD [address] [place] [phone] Pharmacist Internal Medicine 08/10/23
== END 2024-04-07 16:11 | disposition home or self-care (01) ==
LOC: HO.HAP 16:10
PROVIDERS: Visit Provider Internal Medicine
DX: Z13.89 Encounter for screening for other disorder (principal)